=== PATIENT | male | born 1970 | race Caucasian/White ===

== ENCOUNTER → 2019-04-16 | Outpatient (CLI) | payer OTHER ==
[2019-04-16 09:23] LABS: Basophils % (A) 0 %; Eosinophils # (A) 0.2 k/uL (0-0.7); Eosinophils % (A) 1 %; HCT 47.7 % (39.0-53.0); HGB 16.2 gm/dL (13.0-17.5); Lymphocytes # (A) 1.4 k/uL (1.0-4.8); Lymphocytes % (A) 10 %; MCH 30.2 pg (25.0-35.0); MCHC 33.9 g/dL (31.0-37.0); MCV 89.1 fL (80.0-100.0); Mean Platelet Volume 7.6; Monocytes # (A) 0.7 k/uL (0-1.0); Monocytes % (A) 5 %; Neutrophils # (A) 11.8 k/uL (1.3-7.7); Neutrophils % (A) 83 %; Platelet Count 226 k/uL (150-450); RBC 5.36 m/uL (4.30-5.90); RDW 12.4 % (11.5-15.5); WBC 14.3 k/uL (3.8-10.6)
[2019-04-16 17:00] LABS: Vitamin D 25 Hydroxy 16.7 ng/mL (30.0-100.0)
[2019-04-16 17:52] LABS: Albumin 4.8 g/dL (3.80-4.90); Albumin/Globulin Ratio 2.82 (1.60-3.17); Anion Gap 13.4 mmol/L (4.00-12.00); BUN/Creat Ratio 28.89 Ratio (12.00-20.00); Calcium 9.4 mg/dL (8.7-10.3); Carbon Dioxide 21.6 mmol/L (21.6-31.8); Globulin 1.7 g/dL (1.6-3.3); LDL Cholesterol,Calculated 137.2 mg/dL (0.0-131.0); Potassium 4.7 mmol/L (3.5-5.5); Total Bilirubin 1.4 mg/dL (0.2-1.2); Total Protein 6.5 g/dL (6.2-8.2); VLDL Calculation 40.8 mg/dL (5.00-40.00)
== END | disposition home or self-care (01) ==
LOC: LABWHC1 08:02
PROVIDERS: ATTEND Family Medicine
DX: Z00.00 Encounter for general adult medical examination without abnormal findings (principal); E78.1 Pure hyperglyceridemia; E53.8 Deficiency of other specified B group vitamins; E55.9 Vitamin D deficiency, unspecified; N40.0 Benign prostatic hyperplasia without lower urinary tract symptoms; Z13.228 Encounter for screening for other metabolic disorders; E88.81 Metabolic syndrome and other insulin resistance
CPT/HCPCS: 36415; 80053; 80061; 82306; 82607; 83036; 84153; 84443; 85025

== ENCOUNTER 2023-07-27 12:11 | Day surgery (SDC) | payer BC ==
[2023-07-25 09:46] VITALS: BMI 29.8
[~2023-07-27 12:11] MED LIST: CLINDAMYCIN 600 MG in DEXTROSE 5% IN WATER 50 ML IVPB PRN; FAMOTIDINE 20 MG/2 ML VIAL IV PRN; HYDROmorphone 0.5 MG/0.5 ML SYRINGE IVP PRN; LACTATED RINGERS 1,000 ML IV SCH; LIDOCAINE 1% (10MG/ML) FOR IV START INTRADERMA PRN; ONDANSETRON 4 MG/2 ML VIAL IVP PRN
[2023-07-27] MEDS: OXYMETAZOLINE 0.05% NASL SPRAY 1 SPRAY BOTTLE EA NOSTRIL PRN ×5 (12:39→13:00)
[2023-07-27] MEDS ORDERED: LIDOCAINE 1% (10MG/ML) FOR IV START INTRADERMA ONE (12:58)
[2023-07-27 13:05] LABS: Glucose,Whole Blood 92 mg/dL (70-110)
[2023-07-27] MEDS ORDERED: PROPOFOL 10 MG/ML 20 ML VIAL IV ONE (13:07)
[2023-07-27] MEDS ORDERED: MIDAZOLAM 2 MG/2 ML VIAL ONE (13:07)
[2023-07-27] MEDS ORDERED: fentaNYL (PF) 50 MCG/ML 2 ML AMP ONE (13:07)
[2023-07-27] MEDS ORDERED: SUCCINYLCHOLINE CHLORIDE 200 MG/10 ML VIAL IV ONE (13:07)
[2023-07-27] MEDS ORDERED: LIDOCAINE 1% INJ 10MG/ML (20 ML MDV) ONE (13:07)
[2023-07-27] MEDS ORDERED: LIDOCAINE 2%-EPI 1:100,000 20 ML VIAL SUBMUCOSAL ONE ×2 (13:30)
[2023-07-27] MEDS ORDERED: BACITRACIN ZINC 500 UNIT/GM OINT 28.4 GM TUBE TOPICAL ONE ×2 (13:31→14:17)
--- NOTE | 2023-07-27 14:37 | P.OP ---
Date of Procedure: 07/27/23 Preoperative Diagnosis: Deviated nasal septum Inferior turbinate hypertrophy Chronic sinusitis Sinonasal polyposis Postoperative Diagnosis: Same Procedure(s) Performed: Septoplasty Outfractured and submucous resection inferior turbinates Bilateral endoscopic sinus surgery with polypectomy is including bilateral maxillary antrostomy with removal of tissue from exercise is bilateral anterior and posterior ethmoidectomy, bilateral sphenoidotomy tissue from sphenoid sinuses and bilateral frontal sinusotomy with exploration and removal tissue bilaterally Anesthesia: MOEA Surgeon: Gatito Encarnacion Estimated Blood Loss (ml): 10 Pathology: other (Nasal septal bone and cartilage and sinus contents) Condition: stable Disposition: PACU Indications for Procedure: This 53-year-old white female with difficulties with chronic nasal airway obstruction congestion recurrent and chronic sinusitis and sinonasal polyposis as well as hyposmia. Operative Findings: Nasal septum deviated to the right inferior turbinates hypertrophy bilaterally. Moderate size Polyps medial and lateral to the middle turbinates bilaterally as well as within the maxillary and ethmoid sinuses and small polyps in the sphenoid and frontal sinuses Description of Procedure: The patient was brought into the operative suite and placed in a supine position. The patient underwent induction of general anesthesia with oral endotracheal intubation without difficulty. The patient was prepped and draped in the usual aseptic fashion with the orbits in the operating field for monitoring to the case and the computed tomography scan was on the computer screen for review throughout the case. 1% lidocaine with 1 :100,000 epinephrine was infused submucosally into both sides of the nasal septum as well as the lateral nasal wall and anterior tips of the middle turbinates. While this was taking vasoconstrictive effect the inferior turbinates were infractured with [place] elevator and partial submucous resection of the inferior turbinates was performed with a portion of the submucosal soft tissue and the inferior turbinate bone removed with Coblation device. The inferior turbinates were then outfractured with the [place] elevator. A left hemitransfixion incision was then made with the mucoperichondrial and mucoperiosteal flap on the left elevated. The bony cartilaginous junction was disarticulated and the mucoperiosteal flap on the right was elevated. Bony nasal septal deformities were removed with Joelle forceps and an inferior cartilaginous strip was removed leaving a full 1.5 cm caudal strut. Checking intranasally this corrected the nasoseptal deformities and the hemitransfixion incision was closed with a running 4-0 chromic suture. Full 0 endoscopic examination is performed bilaterally. Beginning on the left, the middle turbinate was medialized. Gross polyps were debrided with microdebrider lateral to the middle turbinate as well as minimally medial to the middle turbinate remaining below the level of the superior turbinate The m axillary ostium was located with a ballpoint probe and an infundibulotomy was performed followed by uncinectomy. The maxillary antrostomy was enlarged at the expense of the anterior and posterior fontanelle taking care anteriorly not to injure the lacrimal bone. The maxillary sinus was evaluated with 30 and 70 endoscope .[Abnormal appearing tissue was removed from the maxillary sinus]. Anterior and posterior ethmoidectomy were then performed from anterior to posterior to the level of the skull base. The roof of the anterior ethmoid air cells were then cleaned from posterior to anterior using up-biting Blakesley forceps. Frontal sinusotomy was performed with curved suction and giraffe forceps. The frontal sinus was then explored with 30 endoscope.[Abnormal tissue was removed from the frontal sinus]. Sphenoidotomy was performed with straight suction and straight [place] forceps The sphenoid sinus was then explored with 0 endoscope.[Abnormal tissue was removed from the sphenoid sinus]. Attention was then turned to the right where the procedures were followed as they had been on the left including medialization middle turbinate infundibulotomy uncinectomy gross polypectomies maxillary antrostomy with removal of tissue from the maxillary sinus, anterior posterior ethmoidectomy, sphenoidotomy with removal of tissue from the sphenoid sinus and frontal sinusotomy with removal of tissue from the frontal sinus [Nasopore nasal dressing was placed in the middle meatus bilaterally under direct visualization]. Bilateral Foley airway splints coated with bacitracin ointment were placed and sutured transseptally with a 4-0 nylon suture. The patient was suctioned in oral gastric fashion and was allowed to emerge from general anesthesia having tolerated procedure well and was extubated in the operating suite and transferred to the postoperative recovery area in satisfactory condition.
[2023-07-27 14:52] VITALS: TEMP 97.4
[2023-07-27] MEDS ORDERED: hydrALAZINE HCL 20 MG/ML 1 ML VIAL IVP ONE (16:07)
[2023-07-27 16:49] VITALS: BP 146/70; PULSE 77; RESP 17
== END 2023-07-27 17:03 | disposition home or self-care (01) ==
LOC: OR 12:11
PROVIDERS: ATTEND Otolaryngology
DX: J34.2 Deviated nasal septum (principal); J34.3 Hypertrophy of nasal turbinates; J32.9 Chronic sinusitis, unspecified; Z88.0 Allergy status to penicillin; J45.909 Unspecified asthma, uncomplicated; Z79.899 Other long term (current) drug therapy
CPT/HCPCS: 30520; 30140; 31267; 31257; 31276; 88305; 88300; J2250; J0330; J0360; J2405; J2001; J3010; J3490; J2704; J1170; J0736

== ENCOUNTER → 2024-02-20 | Outpatient (CLI) | payer BC ==
[2024-02-20 21:54] LABS: Alternaria alternata IgE <0.10 kU/L; Aspergillus fumagatus IgE <0.10 kU/L; Birch IgE <0.10 kU/L; Cat Epith & Dander IgE <0.10 kU/L; Cladosporian herbarum IgE <0.10 kU/L; Cockroach IgE <0.10 kU/L; Dermato. farinae IgE <0.10 kU/L; Dog Dander IgE <0.10 kU/L; Elm IgE <0.10 kU/L; Maple (Box Elder) IgE <0.10 kU/L; Oak IgE <0.10 kU/L; Ragweed,Common IgE 0.41 kU/L; Red Top (Bentgrass) IgE <0.10 kU/L
[2024-02-20 21:55] LABS: Aspergillus fumagatus IgE <0.10 kU/L
== END | disposition home or self-care (01) ==
LOC: LABWHC1 09:59
PROVIDERS: ATTEND Internal Medicine Critical Care Medicine
DX: J45.50 Severe persistent asthma, uncomplicated (principal)
CPT/HCPCS: 36415; 82785; 85008; 86003

== ENCOUNTER → 2024-03-05 | Outpatient (CLI) | payer BC ==
--- NOTE | 2024-03-05 09:15 | CT ---
EXAMINATION TYPE: CT chest w con CT DLP: 467.1 mGycm, Automated exposure control for dose reduction was used. DATE OF EXAM: 03/05/2024 7:44 AM COMPARISON: Chest 02/20/2024 CLINICAL INDICATION:Male, 53 years old with history of J45.50 asthma; PHH, asthma TECHNIQUE: Multiple axial images were obtained through the chest. Sagittal and coronal reformats were created for review. Contrast used:100 mL of Isovue 300 with IV Contrast (None if empty) Oral contrast used: (None if empty) FINDINGS: LUNGS/ PLEURA: Scattered pulmonary nodules are seen throughout the lungs. Samples include: somewhat * Right upper lobe groundglass opacity measuring 7 mm series 3 image 14, * right middle lobe 7 mm image 35, * right lower lobe 5 mm image 37 AIRWAY : Patent and unremarkable. HEART: Size within normal limits. MEDIASTINUM: No gross evidence of adenopathy. VASCULATURE: No aortic aneurysm. MUSCULOSKELETAL: No acute osseous abnormalities SOFT TISSUES/LYMPH NODES: Unremarkable. LOWER NECK: No significant findings. UPPER ABDOMEN: No significant findings. IMPRESSION: Scattered pulmonary nodules throughout the lungs. Correlate for history of malignancy. ort-term follow-up recommended in 3 months. Comparisons with others priors institutions may be of fermin efit. No enlarged nodes are identified.
== END | disposition home or self-care (01) ==
LOC: RADCTMAIN 07:14
PROVIDERS: ATTEND Internal Medicine Critical Care Medicine
DX: R91.8 Other nonspecific abnormal finding of lung field (principal); J45.50 Severe persistent asthma, uncomplicated
CPT/HCPCS: 71260; Q9967

== ENCOUNTER 2024-03-21 17:51 | Observation (INO) | payer BC ==
--- NOTE | 2024-03-21 19:07 | ED ---
Chest Pain HPI - General Chief Complaint: Chest Pain Stated Complaint: chest pain Time Seen by Provider: 03/21/24 17:58 Source: patient Mode of arrival: ambulatory Limitations: no limitations - History of Present Illness Initial Comments: This patient is a 53-year-old man who complains of having bilateral chest pain that has been going on for approximately 1 week, perhaps little more. He describes it as a aching or burning. He has also had some cough. Patient has underlying history of asthma and did receive Dupixent shot approximately 2 weeks ago. He states he has felt like he may have had fevers. No anginal type symptoms, no diaphoresis, dyspnea, nausea or vomiting. MD Complaint: chest pain Onset/Timin -: week(s) Onset: during rest Pain Location: left chest, right chest Pain Radiation: none Severity: moderate Quality: other Consistency: constant Improves With: nothing Worsens With: other Other Symptoms: cough Treatments Prior to Arrival: none - Related Data Home Medications Medication Instructions Recorded Confirmed Montelukast [Singulair] 10 mg PO HS 07/25/23 03/21/24 Albuterol Inhaler [Ventolin Hfa 2 puff INHALATION RT-Q6H PRN 03/21/24 03/21/24 Inhaler] Albuterol Nebulized [Ventolin 2.5 mg INHALATION RT-TID PRN 03/21/24 03/21/24 Nebulized] Ascorbic Acid [Vitamin C] 1,000 mg PO DAILY 03/21/24 03/21/24 Cholecalciferol [Vitamin D3 (25 50 mcg PO DAILY 03/21/24 03/21/24 Mcg = 1000 Iu)] Dupilumab [Dupixent Syringe] 300 mg SQ DIRECTED 03/21/24 03/21/24 Dupilumab [Dupixent Syringe] 600 mg SQ ONCE 03/21/24 03/21/24 Fluticasone/Umeclidin/Vilanter 1 puff INHALATION RT-DAILY 03/21/24 03/21/24 [Trelegy Ellipta 200-62.5-25] Rosuvastatin Calcium [Crestor] 5 mg PO DAILY 03/21/24 03/21/24 Allergies Allergy/AdvReac Type Severity Reaction Status Date / Time Penicillins Allergy Rash/Hives Verified 03/21/24 19:20 Review of Systems ROS Statement: Those systems with pertinent positive or pertinent negative responses have been documented in the HPI. ROS Other: All systems not noted in ROS Statement are negative. Constitutional: Reports: fever. Denies: weakness Respiratory: Reports: cough, wheezes. Denies: dyspnea Cardiovascular: Reports: as per HPI, chest pain. Denies: palpitations, orthopnea, edema, syncope Gastrointestinal: Denies: abdominal pain, nausea, vomiting, diarrhea Genitourinary: Denies: dysuria, hematuria Musculoskeletal: Denies: back pain Skin: Denies: rash Neurological: Denies: headache, weakness EKG Findings - EKG Results: EKG: interpreted by KAREN, sinus rhythm, normal QRS, normal ST/T EKG shows: tachycardia (107) - Blocks, [place], Hypertrophy, ST Abn: QRS axis and voltage: left axis deviation (-30 to -90) (Borderline) Past Medical History Past Medical History: Asthma Additional Past Medical History / Comment(s): sinus and allergy issues History of Any Multi-Drug Resistant Organisms: None Reported Past Surgical History: No Surgical Hx Reported Additional Past Anesthesia/Blood Transfusion Reaction / Comment(s): pt has never had anesth. Past Psychological History: No Psychological Hx Reported Smoking Status: Never smoker Past Alcohol Use History: Rare Past Drug Use History: None Reported - Past Family History Mother Family Medical History: No Reported History General Exam Limitations: no limitations General appearance: alert, in no apparent distress Head exam: Present: atraumatic, normocephalic Eye exam: Present: normal appearance. Absent: scleral icterus, conjunctival injection ENT exam: Present: normal oropharynx Neck exam: Present: normal inspection Respiratory exam: Present: wheezes. Absent: respiratory distress, rales, rhonchi, stridor, chest wall tenderness, accessory muscle use, decreased breath sounds, prolonged expiratory Cardiovascular Exam: Present: regular rate, normal rhythm, normal heart sounds. Absent: systolic murmur, diastolic murmur, rubs, gallop GI/Abdominal exam: Present: soft. Absent: distended, tenderness, guarding, rebound, rigid, mass Extremities exam: Present: normal inspection, normal capillary refill. Absent: pedal edema, calf tenderness Back exam: Present: normal inspection. Absent: CVA tenderness (R), CVA tenderness (L) Neurological exam: Present: alert Skin exam: Present: warm, dry, intact, normal color. Absent: rash Course Vital Signs 03/21/24 03/21/24 03/21/24 17:53 18:03 18:19 Temperature 100.8 F H 101.1 F H Pulse Rate 116 H 110 H Respiratory 20 20 22 Rate Blood Pressure 114/68 122/72 O2 Sat by Pulse 97 96 Oximetry 03/21/24 03/21/24 03/21/24 19:23 20:00 21:00 Temperature 98.1 F Pulse Rate 108 H 105 H 108 H Respiratory 18 20 22 Rate Blood Pressure 123/70 116/74 107/59 O2 Sat by Pulse 96 95 95 Oximetry 03/21/24 22:42 Temperature Pulse Rate 100 Respiratory 18 Rate Blood Pressure 98/57 O2 Sat by Pulse 96 Oximetry Disposition Clinical Impression: Chest pain Disposition: ADMITTED IP TO THIS HOSP Condition: Fair Instructions (If sedation given, give patient instructions): Chest Pain (ED) Is patient prescribed a controlled substance at d/c from ED?: No Referrals: Clary Vela MD [Primary Care Provider] - 1-2 days
[2024-03-21 19:09] LABS: Basophils % (A) 0 %; Eosinophils # (A) 2.9 k/uL (0-0.7); Eosinophils % (A) 23 %; HCT 39.4 % (39.0-53.0); HGB 12.7 gm/dL (13.0-17.5); Lymphocytes # (A) 1.5 k/uL (1.0-4.8); Lymphocytes % (A) 12 %; MCH 30.5 pg (25.0-35.0); MCHC 32.3 g/dL (31.0-37.0); MCV 94.3 fL (80.0-100.0); Mean Platelet Volume 8.9; Monocytes # (A) 0.9 k/uL (0-1.0); Monocytes % (A) 7 %; Neutrophils # (A) 7.2 k/uL (1.3-7.7); Neutrophils % (A) 57 %; Platelet Count 222 k/uL (150-450); RBC 4.18 m/uL (4.30-5.90); RDW 12.6 % (11.5-15.5); WBC 12.6 k/uL (3.8-10.6)
[2024-03-21] MEDS: IBUPROFEN 400 MG TAB PO STA (19:21)
[2024-03-21] MEDS: ACETAMINOPHEN TAB 325 MG TAB PO STA (19:22)
[2024-03-21 19:24] LABS: ALT 23 U/L (4-49); AST 30 U/L (17-59); African American GFR (CKD) >90 (>60 ml/min/1.73 sqM); Alkaline Phosphatase 68 U/L (38-126); Anion Gap 6 mmol/L; Blood Urea Nitrogen 25 mg/dL (9-20); Carbon Dioxide 28 mmol/L (22-30); Chloride 101 mmol/L (98-107); Glucose 99 mg/dL (74-99); Magnesium 1.8 mg/dL (1.6-2.3); Non-African American GFR(CKD) >90 (>60 ml/min/1.73 sqM); Potassium 4.4 mmol/L (3.5-5.1); Sodium 135 mmol/L (137-145); Total Bilirubin 1.2 mg/dL (0.2-1.3); Total Protein 6.9 g/dL (6.3-8.2)
--- NOTE | 2024-03-21 19:28 | XR ---
EXAMINATION TYPE: XR chest 2V DATE OF EXAM: 03/21/2024 COMPARISON: 02/20/2024 HISTORY: 53 year-old male shortness of breath TECHNIQUE: PA and lateral views FINDINGS: Heart upper limits of normal in size. Medium diffuse interstitial opacities without peter consolidati on or pleural effusion. IMPRESSION: Diffuse abnormal interstitial opacities. Consider etiologies such as mild interstitial pulmonary jenifer a, atypical pneumonias, and interstitial pneumonitis.
[2024-03-21 19:44] LABS: INR 0.9 (<1.2); Partial Thromboplastin Time 27.4 sec (22.0-30.0); Prothrombin Time 10.1 sec (10.0-12.5)
[2024-03-21] MEDS: SODIUM CHLORIDE 0.9% 1,700 ML IV ONE (21:06)
[2024-03-21] MEDS: SODIUM CHLORIDE 0.9% 1,000 ML IV STA (21:07)
[2024-03-21] MEDS: AZITHROMYCIN 500 MG TAB PO STA (22:39)
[2024-03-21] MEDS: ASPIRIN 81 MG PO STA (22:41)
[2024-03-21] MEDS ORDERED: NITROGLYCERIN SL TABS 0.4 MG TAB SUBLINGUAL PRN (22:57)
[2024-03-21] MEDS ORDERED: ALBUTEROL NEBULIZED 2.5 MG/3 ML INHALATION PRN (23:06)
[2024-03-21] MEDS: ENOXAPARIN 100 MG/ML SYRINGE SQ ONE (23:31)
[2024-03-22] MEDS: SYMBICORT 80-4.5 MCG INHALER INHALATION SCH (08:21)
[2024-03-22] MEDS: IPRATROPIUM 0.5 MG/2.5 ML NEBU INHALATION SCH (08:21)
[2024-03-22] MEDS: ASCORBIC ACID 500 MG TAB PO SCH (08:47)
[2024-03-22] MEDS: ATORVASTATIN 10 MG TAB PO SCH (08:47)
[2024-03-22] MEDS: ASPIRIN 325 MG TAB PO SCH (08:47)
[2024-03-22] MEDS: AZITHROMYCIN 500 MG TAB PO SCH (08:47)
[2024-03-22] MEDS: CHOLECALCIFEROL 25 MCG (1000 IU) TABLET PO SCH (08:47)
[2024-03-22] MEDS: METOPROLOL SUCCINATE (ER) 25 MG TAB.ER.24H PO SCH (09:43)
[2024-03-22] MEDS: HEPARIN SODIUM 1,000 UN/ML (10ML VL) IV ONE (09:44)
[2024-03-22] MEDS: HEPARIN SOD,PORK IN 0.45% NACL 25,000 UNIT in 0.45% NACL 1 250ML.BAG IV SCH (09:44)
[2024-03-22 10:07] LABS: Chol/HDL Ratio 3.12 Ratio; LDL Cholesterol,Calculated 60.9 mg/dL (0.0-131.0); VLDL Calculation 19.96 mg/dL (5.00-40.00)
[2024-03-22] MEDS ORDERED: ALBUTEROL NEBULIZED 2.5 MG/3 ML INHALATION PRN (12:57)
--- NOTE | 2024-03-22 13:47 | P.CRDCN ---
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 Amador, remote history of tobacco use. We have been asked to evaluate the patient for chest pain. Patient states that he developed shortness of breath and then developed chest pain at the same time which is not usual for him. He also has fever, cough. He denies sputum production. He denies shortness of breath at this time. He denies smoking, tobacco use or marijuana use. His father had history of atrial fibrillation but no significant coronary artery disease. Blood pressure 116/73, heart rate 114, pulse ox 95% on room air. Patient has been started on IV antibiotics, status post 1.7 L IV fluid bolus EKG: Sinus tachycardia 107 bpm, sinus tachycardia 93 bpm Chest x-ray: Diffuse abnormal interstitial opacities. Etiologies include mild interstitial pulmonary edema, atypical pneumonias, interstitial pneumonitis. Laboratory studies: WBC 12.6, hemoglobin 12.7. Sodium 135, potassium 4.4, BUN 25 and creatinine 0.75. Troponin 0.142, 0.177, 0.181, 0.161. Influenza A, influenza B, RSV, COVID-19 not detected. Home cardiac medications: Crestor 5 mg daily Review Of Systems: At the time of my exam: CONSTITUTIONAL: Reports fever or chills. HEENT: Denies blurred vision, vision changes, or eye pain. Denies hemoptysis CARDIOVASCULAR: Denies chest pain. Denies orthopnea. Denies PND. Denies palpitations RESPIRATORY: Denies shortness of breath. Reports cough without sputum production GASTROINTESTINAL: Denies abdominal pain. Denies nausea or vomiting. HEMATOLOGIC: Denies bleeding disorders. GENITOURINARY: Denies any blood in urine. SKIN: Denies puritis. Denies rash. Physical examination: Gen: This is a 53-year-old male in no acute distress VS: reviewed HEENT: Head is atraumatic, normocephalic. Pupils equal, round. Sclerae is anicteric. NECK: Supple. No JVD. LUNGS: Few scattered rhonchi. No intercostal retractions. HEART: Regular rate and rhythm. No murmur. ABDOMEN: Soft No tenderness. EXTREMITIES: No pedal edema. No calf tenderness. NEUROLOGICAL: Patient is awake, alert and oriented x3. Assessment: Possible Non-ST elevated MO versus type II MO, patient has elevated but flat troponins Eosinophilic asthma Hyperlipidemia Asthma Remote history of tobacco use Plan: Resume patient's home cardiac medications following changes: Increase atorvastatin to 40 mg daily Reduce aspirin to 81 mg daily Start patient on Toprol XL 25 mg daily Start patient on heparin drip Obtain 2-D echocardiogram and Doppler study to assess cardiac structure and function Continue antibiotics Further recommendations to follow based upon clinical course Thank you kindly for this consultation. Nurse practitioner note has been reviewed, I agree with documented findings and plan of care. Patient was seen and examined. Past Medical History Past Medical History: Asthma, Hyperlipidemia Additional Past Medical History / Comment(s): sinus and allergy issues History of Any Multi-Drug Resistant Organisms: None Reported Past Surgical History: No Surgical Hx Reported Additional Past Surgical History / Comment(s): Jul 2023 sinus sx Past Anesthesia/Blood Transfusion Reactions: No Reported Reaction Additional Past Anesthesia/Blood Transfusion Reaction / Comment(s): No prior blood transfusion. Past Psychological History: No Psychological Hx Reported Smoking Status: Former smoker Past Alcohol Use History: None Reported, Rare Past Drug Use History: None Reported - Past Family History Mother Family Medical History: Diabetes Mellitus Father Family Medical History: AFIB, Diabetes Mellitus Medications and Allergies Home Medications Medication Instructions Recorded Confirmed Type Montelukast [Singulair] 10 mg PO HS 07/25/23 03/21/24 History Albuterol Inhaler [Ventolin Hfa 2 puff INHALATION RT-Q6H PRN 03/21/24 03/21/24 History Inhaler] Albuterol Nebulized [Ventolin 2.5 mg INHALATION RT-TID PRN 03/21/24 03/21/24 History Nebulized] Ascorbic Acid [Vitamin C] 1,000 mg PO DAILY 03/21/24 03/21/24 History Cholecalciferol [Vitamin D3 (25 50 mcg PO DAILY 03/21/24 03/21/24 History Mcg = 1000 Iu)] Dupilumab [Dupixent Syringe] 300 mg SQ DIRECTED 03/21/24 03/21/24 History Dupilumab [Dupixent Syringe] 600 mg SQ ONCE 03/21/24 03/21/24 History Fluticasone/Umeclidin/Vilanter 1 puff INHALATION RT-DAILY 03/21/24 03/21/24 History [Trelegy Ellipta 200-62.5-25] Rosuvastatin Calcium [Crestor] 5 mg PO DAILY 03/21/24 03/21/24 History Allergies Allergy/AdvReac Type Severity Reaction Status Date / Time Penicillins Allergy Rash/Hives Verified 03/21/24 19:20 Physical Exam Vitals: Vital Signs Temp Pulse Pulse Resp BP BP Pulse Ox 03/22/24 03:40 98.7 F 114 H 18 116/73 95 03/22/24 00:18 98.1 F 100 20 121/77 96 03/22/24 00:00 89 18 107/65 96 03/21/24 22:42 100 18 98/57 96 03/21/24 21:00 98.1 F 108 H 22 107/59 95 03/21/24 20:00 105 H 20 116/74 95 03/21/24 19:23 108 H 18 123/70 96 03/21/24 18:19 101.1 F H 110 H 22 122/72 96 03/21/24 18:03 20 03/21/24 17:53 100.8 F H 116 H 20 114/68 97 Intake and Output 03/21/24 03/22/24 03/22/24 22:59 06:59 14:59 Other: Voiding Method Toilet # Voids 1 Weight 99.79 kg 100.9 kg Results 03/21/24 18:53 03/21/24 18:53 Cardiac Enzymes 03/21/24 03/21/24 03/21/24 Range/Units 18:53 18:53 21:08 AST 30 (17-59) U/L Troponin I 0.142 H* 0.177 H* (0.000-0.034) ng/mL 03/22/24 03/22/24 Range/Units 00:01 03:54 AST (17-59) U/L Troponin I 0.181 H* 0.161 H* (0.000-0.034) ng/mL Coagulation 03/21/24 Range/Units 18:53 PT 10.1 (10.0-12.5) sec APTT 27.4 (22.0-30.0) sec CBC 03/21/24 Range/Units 18:53 WBC 12.6 H (3.8-10.6) k/uL RBC 4.18 L (4.30-5.90) m/uL Hgb 12.7 L (13.0-17.5) gm/dL Hct 39.4 (39.0-53.0) % Plt Count 222 (150-450) k/uL Comprehensive Metabolic Panel 03/21/24 Range/Units 18:53 Sodium 135 L (137-145) mmol/L Potassium 4.4 (3.5-5.1) mmol/L Chloride 101 (98-107) mmol/L Carbon Dioxide 28 (22-30) mmol/L BUN 25 H (9-20) mg/dL Creatinine 0.75 (0.66-1.25) mg/dL Glucose 99 (74-99) mg/dL Calcium 9.0 (8.4-10.2) mg/dL AST 30 (17-59) U/L ALT 23 (4-49) U/L Alkaline Phosphatase 68 (38-126) U/L Total Protein 6.9 (6.3-8.2) g/dL Albumin 4.0 (3.5-5.0) g/dL Current Medications Generic Name Dose Route Start Last Admin Trade Name Freq PRN Reason Stop Dose Admin Albuterol Sulfate 2.5 mg 03/21/24 23:06 Albuterol Nebulized 2.5 Mg/3 Ml INHALATION RT-TID PRN Shortness Of Breath Ascorbic Acid 1,000 mg 03/22/24 09:00 Ascorbic Acid 500 Mg Tab PO DAILY [facility] Aspirin 325 mg 03/22/24 09:00 Aspirin 325 Mg Tab PO DAILY [facility] Atorvastatin Calcium 10 mg 03/22/24 09:00 Atorvastatin 10 Mg Tab PO DAILY [facility] Azithromycin 500 mg 03/22/24 09:00 Azithromycin 500 Mg Tab PO 03/25/24 09:01 DAILY [facility] Protocol Budesonide/Formoterol Fumarate 2 puff 03/22/24 08:00 Symbicort 80-4.5 Mcg Inhaler INHALATION RT-BID [facility] Cholecalciferol 50 mcg 03/22/24 09:00 Cholecalciferol 25 Mcg (1000 Iu) Tablet PO DAILY [facility] Ceftriaxone Sodium 2 gm/ 50 mls @ 100 mls/hr 03/22/24 21:00 Sodium Chloride IVPB DAILY@2100 [facility] Protocol Ipratropium [place] 0.5 mg 03/22/24 08:00 Ipratropium 0.5 Mg/2.5 Ml Nebu INHALATION RT-QID RIKY Montelukast Sodium 10 mg 03/22/24 21:00 Montelukast 10 Mg Tab PO HS RIKY Nitroglycerin 0.4 mg 03/21/24 22:57 Nitroglycerin Sl Tabs 0.4 Mg Tab SUBLINGUAL Q5M PRN Chest Pain Intake and Output 03/21/24 03/22/24 03/22/24 22:59 06:59 14:59 Other: Voiding Method Toilet # Voids 1 Weight 99.79 kg 100.9 kg 03/21/24 18:53 03/21/24 18:53
[2024-03-22 14:02] LABS: Appearance,Urine Clear (Clear); Bilirubin,Urine Negative (Negative); Blood,Urine Negative (Negative); Color,Urine Yellow; Glucose,Urine (UA) Negative (Negative); Ketones,Urine 1+ (Negative); Leukocyte Esterase,Urine Negative (Negative); Nitrite,Urine Negative (Negative); Protein,Urine Trace (Negative); Specific Gravity,Urine 1.028 (1.001-1.035); Urobilinogen,Urine <2.0 mg/dL (<2.0)
--- NOTE | 2024-03-22 15:00 | CT ---
EXAMINATION TYPE: CT angio chest CT DLP: 464 mGycm, Automated exposure control for dose reduction was used. DATE OF EXAM: 03/22/2024 2:44 PM COMPARISON: 03/05/2024 CLINICAL INDICATION:Male, 53 years old with history of positive ddimer; Elevated D-dimer. TECHNIQUE/CONTRAST: CTA scan of the thorax is performed with IV Contrast, patient injected with 100 mL of Isovue 370, MIP images are created and reviewed these are created on a separate workstation.. FINDINGS: Pulmonary Artery: There is no evidence for a filling defect within the pulmonary vasculature to sugge st acute pulmonary embolism. The pulmonary artery is of normal size. Lungs/Pleura: There are multiple pulmonary nodules throughout the lungs, with the majority of abdomen irregular borders. No evidence of focal consolidation, pleural effusion or pneumothorax. Airway: Large airways are patent. Heart: Heart is within normal limits for size. Vasculature: No evidence of aortic aneurysm. Mediastinum: No gross evidence of adenopathy. Musculoskeletal: No acute osseous abnormalities Soft Tissues/lymph nodes: Unremarkable. Lower neck: No significant findings. Upper Abdomen: No significant findings. IMPRESSION: 1. No evidence of pulmonary embolism. 2. Scattered pulmonary nodules throughout the lungs which are more dense compared to prior. Correlate for infectious/inflammatory processes. Alternatively findings could represent metastatic disease yane ropriate clinical setting. Short-term follow-up in 3 months recommended to ensure resolution.
[2024-03-22] MEDS: ACETAMINOPHEN TAB 325 MG TAB PO PRN (16:54)
[2024-03-22] MEDS: methylPREDNISolone SOD SUCCI 125 MG/2 ML VIAL IV SCH (17:31)
[2024-03-22] MEDS: MONTELUKAST 10 MG TAB PO SCH (20:27)
--- NOTE | 2024-03-22 21:07 | HP ---
HISTORY AND PHYSICAL CHIEF COMPLAINT: Chest pain. HISTORY OF PRESENT ILLNESS: This is a 53-year-old gentleman with a past medical history of pansinusitis, history of eosinophilic asthma, was complaining of chest pain anterior part of the chest. EKG did not show acute changes, but troponin was found to be elevated up to 0.8 to 1. There is no history of any fever, rigors, or chills at this time. The patient is taking Dupixent for eosinophilic asthma. PAST MEDICAL HISTORY: Reviewed include eosinophilic asthma, history of pansinusitis surgery, hyperlipidemia, rest of the history and chart is also reviewed. HOME MEDICATION: Reviewed include Singulair, dose and rest of medications noted. ALLERGIES: Penicillin. FAMILY HISTORY: History of diabetes in the family. SOCIAL HISTORY: Previous history of smoking. The patient works REVIEW OF SYSTEMS: 14-point review of systems is negative except as mentioned earlier. PHYSICAL EXAMINATION: VITAL SIGNS: Pulse is 109, blood pressure 114/69, respirations 18, and temperature degrees. HEENT: Conjunctivae normal. NECK: No jugular venous distention. CARDIOVASCULAR: S1 and S2. RESPIRATIONS: Few rhonchi. No crackles. ABDOMEN: Soft. . SKIN: No ulcers. LABORATORY DATA: Reviewed include WBC 12.6, hemoglobin 12.7. COVID-19 negative. ASSESSMENT: 1. Chest pain, possible acute [id number] elevation myocardial infarction with troponin 0.181. 2. Eosinophilic asthma. 3. Significant . 4. Fever, for evaluation. 5. History of pansinusitis. 6. Hyperlipidemia. RECOMMENDATIONS AND DISCUSSION: This 53-year-old gentleman presented with multiple complex medical issues. We will monitor the patient closely. The patient was initiated on broad-spectrum IV antibiotics. We will continue to monitor. Recommend pulmonary consultation. The chest x-ray was reported as showing abnormal interstitial opacities. I recommend CT scan of the chest without contrast. Consult Pulmonary, Cardiology, Hematology/Oncology. Obtain the cultures. If fever is persisting, I would also recommend Infectious Disease evaluation also. Prognosis guarded. Further recommendations to follow. See orders for details. MMODL / IJN: [id number] /
--- NOTE | 2024-03-22 23:36 | P.CNPUL ---
History of Present Illness Consult date: 03/22/24 Reason for consult: dyspnea, chest pain History of present illness: This is a 53-year-old male patient who was hospitalized for chest pain across his chest radiating to his back worse with breathing. The pain is rather constant with the severity of the pain fluctuating especially with breathing. He was having some sweating and diaphoresis overnight. No radiation to his arms. No nausea. The patient however was getting diaphoretic. Based on that, he was brought into the emergency department for further evaluation. I met this patient approximately a month ago in my office. He came to see me for shortness of breath and diminished level of activity as the patient was getting short of breath upon walking 25 to 50 feet. He had symptoms of constant cough and congestion chest tightness and wheezing. At that time, the patient was found to be severely bronchospastic and he had obstructive airway limitation with an FEV1 of 35% predicted with an FEV1 over FVC ratio of 60 with normal total lung capacity. Chest x-ray showed some minimal nonspecific interstitial changes in the lung bases more so on the left. Based on that, I started the patient on a maintenance of prednisone and I started him on Trelegy Ellipta 1 puff a day and Singulair 10 mg p.o. daily. His serum IgE level came back at 167. Aspergillus IgE levels came back negative and the serum eosinophil count was 2970. He is respiratory allergy panel was essentially negative. The patient was started on Dupixent injections and he received his first loading dose. In follow-up, I saw the patient in the office and he was having significant improvement where his FEV1 was up to 75% of predicted. I reviewed the CAT scan of the chest and it showed some nonspecific right upper lobe groundglass opacity measuring 7 mm in size in the right middle lobe opacity measuring 7 mm in size in the right lower lobe measuring 5 mm in size. No honeycombing. No bronchiectasis. He was on a prednisone burst taper which was ultimately weaned off and discontinued. Around 4 to 5 days ago, he developed the above-mentioned symptoms that he came into the emergency department for further investigation. No workup thus far shows a white cell count of 12.6 with a hemoglobin 12.7 and a platelet count of 222. Coagulation profile is within normal limits. D-dimer is at 1.97. BUN is 25 with a creatinine of 0.7 and sodium is at 135. Troponins were elevated and the levels were 0.140.17 0.18-0.16 respectively x 4. His CRP level was 16.2. His UA was positive for ketones. Negative for blood. The viral screen was negative. Based on the EKG, there is some nonspecific ST segment changes yet the cardiac rhythm was felt to be essentially to be in sinus. The patient had a repeat chest x-ray that showed some increased interstitial opacities bilaterally. Based on that, the patient was given a CT angiogram and this showed no evidence of any pulmonary embolism. There are some scattered pulmonary nodules throughout the lungs there are more than as compared to the previous study. Infectious/inflammatory causes were obviously entertained. I compared the current CAT scan with the earlier CAT scans of the chest and center of this pulmonary result of the new onset. Cardiology has been consulted. Echocardiogram is in progress. The patient was started on a combination of Rocephin and Zithromax. Pulmonary consultation was requested accordingly. The patient's oxygenation is 95% on room air. Review of Systems Patient reports sinus problems but reports no frequent nosebleeds and no nose problems. He reports shortness of breath when walking but reports ] chest pain, no arm pain on exertion, no shortness of breath when lying down, no pal pitations, and no known heart murmur. He reports cough, wheezing, and shortness of breath but reports no coughing up blood and no sleep apnea. He reports runny nose and sinus pressure but reports no itching, no hives, and no frequent sneezing. He reports no fever, no night sweats, no significant weight gain, no significant weight loss, and no exercise intolerance. He reports no dry eyes, no vision change, and no irritation. He reports no difficulty hearing and no ear pain. He reports no sore throat, no bleeding gums, no snoring, no dry mouth, no mouth ulcers, no oral abnormalities, and no teeth problems. He reports no abdominal pain, no nausea, no vomiting, no constipation, normal appetite, no diarrhea, not vomiting blood, no dyspepsia, and no GERD. He reports no incontinence, no difficulty urinating, no hematuria, and no increased frequency. He reports no muscle aches, no muscle weakness, no arthralgias/joint pain, no back pain, and no swelling in the extremities. He reports no abnormal mole, no jaundice, no rashes, and no laceration. He reports no loss of consciousness, no weakness, no numbness, no seizures, no dizziness, no migraines, no headaches, and no tremor. He reports no depression, no sleep disturbances, feeling safe in a relationship, no alcohol abuse, no anxiety, no hallucinations, and no suicidal thoughts. He reports no fatigue. He reports no swollen glands, no bruising, and no excessive bleeding. Past Medical History Past Medical History: Asthma, Hyperlipidemia Additional Past Medical History / Comment(s): sinus and allergy issues History of Any Multi-Drug Resistant Organisms: None Reported Past Surgical History: No Surgical Hx Reported Additional Past Surgical History / Comment(s): Jul 2023 sinus sx Past Anesthesia/Blood Transfusion Reactions: No Reported Reaction Additional Past Anesthesia/Blood Transfusion Reaction / Comment(s): No prior blood transfusion. Past Psychological History: No Psychological Hx Reported Smoking Status: Former smoker Past Alcohol Use History: None Reported, Rare Past Drug Use History: None Reported - Past Family History Mother Family Medical History: Diabetes Mellitus Father Family Medical History: AFIB, Diabetes Mellitus Medications and Allergies Home Medications Medication Instructions Recorded Confirmed Type Montelukast [Singulair] 10 mg PO HS 07/25/23 03/21/24 History Albuterol Inhaler [Ventolin Hfa 2 puff INHALATION RT-Q6H PRN 03/21/24 03/21/24 History Inhaler] Albuterol Nebulized [Ventolin 2.5 mg INHALATION RT-TID PRN 03/21/24 03/21/24 History Nebulized] Ascorbic Acid [Vitamin C] 1,000 mg PO DAILY 03/21/24 03/21/24 History Cholecalciferol [Vitamin D3 (25 50 mcg PO DAILY 03/21/24 03/21/24 History Mcg = 1000 Iu)] Dupilumab [Dupixent Syringe] 300 mg SQ DIRECTED 03/21/24 03/21/24 History Dupilumab [Dupixent Syringe] 600 mg SQ ONCE 03/21/24 03/21/24 History Fluticasone/Umeclidin/Vilanter 1 puff INHALATION RT-DAILY 03/21/24 03/21/24 History [Trelegy Ellipta 200-62.5-25] Rosuvastatin Calcium [Crestor] 5 mg PO DAILY 03/21/24 03/21/24 History Allergies Allergy/AdvReac Type Severity Reaction Status Date / Time Penicillins Allergy Rash/Hives Verified 03/21/24 19:20 Physical Exam Vitals: Vital Signs Temp Pulse Pulse Resp BP BP Pulse Ox 03/22/24 16:50 101.3 F H 108 H 18 117/69 95 03/22/24 13:42 107 H 18 03/22/24 11:55 99.8 F H 107 H 18 104/65 94 L 03/22/24 10:16 109 H 18 03/22/24 08:45 100.0 F H 109 H 18 114/69 90 L 03/22/24 08:30 111 H 03/22/24 08:25 111 H 14 92 L 03/22/24 03:40 98.7 F 114 H 18 116/73 95 03/22/24 00:18 98.1 F 100 20 121/77 96 03/22/24 00:00 89 18 107/65 96 03/21/24 22:42 100 18 98/57 96 03/21/24 21:00 98.1 F 108 H 22 107/59 95 03/21/24 20:00 105 H 20 116/74 95 03/21/24 19:23 108 H 18 123/70 96 03/21/24 18:19 101.1 F H 110 H 22 122/72 96 03/21/24 18:03 20 03/21/24 17:53 100.8 F H 116 H 20 114/68 97 Intake and Output 03/22/24 03/22/24 03/22/24 06:59 14:59 22:59 Intake Total 1080 63.167 Output Total 120 Balance 960 63.167 Intake: Intake, IV Titration 63.167 Amount Heparin Sod,Pork in 0.45% 63.167 NaCl 25,000 unit In 0.45 % NaCl 1 250ml.bag @ 9. 9108 UNITS/KG/HR 10 mls/ hr IV .Q24H [facility] Rx#: [id number] Oral 1080 Output: Urine 120 Other: Voiding Method Toilet Toilet # Voids 1 Weight 100.9 kg Patient is currently on room air oxygen,, comfortable. Head exam was generally normal. There was no scleral icterus or corneal arcus. Mucous membranes were moist. Neck was supple and without jugular venous distension, thyromegaly, or carotid bruits. Carotids were easily palpable bilaterally. There was no adenopathy. Lung sounds are diminished along with some few scattered expiratory wheeze Cardiac exam revealed the PMI to be normally situated and sized. The rhythm was regular and no extrasystoles were noted during several minutes of auscultation. The first and second heart sounds were normal and physiologic splitting of the second heart sound was noted. There were no murmurs, rubs, clicks, or gallops. Abdominal exam revealed normal bowel sounds. The abdomen was soft, non-tender, and without masses, organomegaly, or appreciable enlargement of the abdominal aorta. Examination of the extremities revealed easily palpable radial, femoral and pedal pulses. There was no cyanosis, clubbing or edema. Examination of the skin revealed no evidence of significant rashes, suspicious appearing nevi or other concerning lesions. Neurologically, the patient is awake and alert and the patient does not have any focal neurological deficit. Cranial nerves are essentially intact. Results - Laboratory Findings CBC and BMP: 03/21/24 18:53 03/21/24 18:53 PT/INR, D-dimer PT 10.1 sec (10.0-12.5) 03/21/24 18:53 INR 0.9 (<1.2) 03/21/24 18:53 D-Dimer 1.97 mg/L FEU (<0.60) H 03/22/24 13:30 Abnormal lab findings: Abnormal Labs 03/21/24 03/21/24 03/21/24 18:53 18:53 18:53 WBC 12.6 H RBC 4.18 L Hgb 12.7 L Eosinophils # 2.9 H APTT D-Dimer Sodium 135 L BUN 25 H Troponin I 0.142 H* C-Reactive Protein HDL Cholesterol Urine Protein Urine Ketones 03/21/24 03/22/24 03/22/24 21:08 00:01 03:54 WBC RBC Hgb Eosinophils # APTT D-Dimer Sodium BUN Troponin I 0.177 H* 0.181 H* 0.161 H* C-Reactive Protein HDL Cholesterol Urine Protein Urine Ketones 03/22/24 03/22/24 03/22/24 03:54 10:36 12:58 WBC RBC Hgb Eosinophils # APTT 43.2 H D-Dimer 1.89 H Sodium BUN Troponin I C-Reactive Protein HDL Cholesterol 38.10 L Urine Protein Urine Ketones 03/22/24 03/22/24 03/22/24 13:18 13:30 13:56 WBC RBC Hgb Eosinophils # APTT D-Dimer 1.97 H Sodium BUN Troponin I C-Reactive Protein 16.2 H HDL Cholesterol Urine Protein Trace H Urine Ketones 1+ H - Diagnostic Findings Chest x-ray: image reviewed CT scan - chest: image reviewed Assessment and Plan Plan: Acute chest pain, diffuse, pleuritic, not typical of any anginal pain yet coronary artery disease obviously a concern as the patient has abnormal troponins and this needs to be further worked up. Nonspecific EKG changes. Patient is currently on IV heparin. CT of the chest is negative for any pulm embolism. 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 Serum IgE level was 167. Respiratory allergy panel was negative. Obviously the patient has abnormal nodular pulm infiltrates bilaterally, nonspecific. There is some interval pr ogression compared to the earlier CAT scan of the chest that was done on this patient few weeks back. He does have chronic sinus disease. Possibility of Churg Raúl syndrome, eosinophilic granulomatosis with polyangiitis cannot be completely ruled out. History of sinus polyposis Allergic rhinitis Chronic back pain Plan Consult with cardiology and the patient was maintained on IV heparin Echocardiogram is in progress CT of the chest was noted and there is no evidence of any pulmonary embolism The pulmonary nodular changes and groundglass changes are most likely noninfectious in nature. Procalcitonin level is negative and the viral screen is also negative. 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 Will check a ANCA level. Will start the patient IV Solu-Medrol. Continue Symbicort for now and the patient should be able to use the Trelegy Ellipta from home if the medication is available in combination with Singulair 10 mg p.o. daily. May consider bronchoscopy at the later stages no definite diagnosis has been established. Will continue to follow
[2024-03-23 06:34] LABS: Glucose,Whole Blood 185 mg/dL (70-110)
[2024-03-23 06:46] LABS: Basophils % (A) 0 %; Eosinophils # (A) 0.2 k/uL (0-0.7); Eosinophils % (A) 2 %; HGB 12.6 gm/dL (13.0-17.5); Lymphocytes # (A) 0.8 k/uL (1.0-4.8); Lymphocytes % (A) 9 %; MCH 30.3 pg (25.0-35.0); MCHC 32.2 g/dL (31.0-37.0); MCV 94.2 fL (80.0-100.0); Mean Platelet Volume 7.8; Monocytes # (A) 0.3 k/uL (0-1.0); Monocytes % (A) 3 %; Neutrophils # (A) 7.8 k/uL (1.3-7.7); Neutrophils % (A) 85 %; Platelet Count 232 k/uL (150-450); RBC 4.14 m/uL (4.30-5.90); RDW 12.5 % (11.5-15.5); WBC 9.1 k/uL (3.8-10.6)
[2024-03-23 07:04] LABS: INR 0.9 (<1.2); Partial Thromboplastin Time 34.6 sec (22.0-30.0); Prothrombin Time 10.5 sec (10.0-12.5)
[2024-03-23 07:08] LABS: ALT 19 U/L (4-49); AST 21 U/L (17-59); African American GFR (CKD) >90 (>60 ml/min/1.73 sqM); Albumin 3.6 g/dL (3.5-5.0); Alkaline Phosphatase 57 U/L (38-126); Anion Gap 5 mmol/L; Blood Urea Nitrogen 24 mg/dL (9-20); Calcium 8.7 mg/dL (8.4-10.2); Carbon Dioxide 25 mmol/L (22-30); Chloride 108 mmol/L (98-107); Glucose 174 mg/dL (74-99); Non-African American GFR(CKD) >90 (>60 ml/min/1.73 sqM); Potassium 4.1 mmol/L (3.5-5.1); Sodium 138 mmol/L (137-145); Total Bilirubin 0.7 mg/dL (0.2-1.3); Total Protein 6.6 g/dL (6.3-8.2)
[2024-03-23] MEDS: HEPARIN SODIUM 1,000 UN/ML (10ML VL) IV PRN (08:06)
--- NOTE | 2024-03-23 11:07 | CA ---
Transthoracic Echo Report Name: Mariano Duvall Age: 53 Gender: M : 1970 Exam Date: 03/23/2024 09:16 Exam Location: [facility] Ht (in): 72 Wt (lb): 222 Ordering Physician: Rachel Ortiz Attending/Referring Phys: [id number], [employer] Maddison Gutierrez, JASON Procedure CPT: Indications: LVF, use definity looking for eosinophilic myocard Cardiac Hx: Technical Quality: Fair Contrast 1: Definity Total Dose (mL): 2 Contrast 2: Total Dose (mL): MEASUREMENTS (Male / Female) Normal Values 2D ECHO LV Diastolic Diameter PLAX 4.2 cm 4.2 - 5.9 / 3.9 - 5.3 cm LV Systolic Diameter PLAX 2.6 cm IVS Diastolic Thickness 1.2 cm 0.6 - 1.0 / 0.6 - 0.9 cm LVPW Diastolic Thickness 1.3 cm 0.6 - 1.0 / 0.6 - 0.9 cm LV Relative Wall Thickness 0.6 RV Internal Dim ED PLAX 3.2 cm LA Systolic Diameter LX 4.7 cm 3.0 - 4.0 / 2.7 - 3.8 cm LV Diastolic Volume MOD BP 119.0 cm??? 67 - 155 / 56 - 104 cm??? LV Systolic Volume MOD BP 39.2 cm??? 22 - 58 / 19 - 49 cm??? LV Ejection Fraction MOD BP 67.1 % >= 55 % LV Cardiac Index MOD BP 3214.7 cm???/min???m??? LV Diastolic Volume MOD 4C 116.4 cm??? LV Systolic Volume MOD 4C 43.2 cm??? LV Ejection Fraction MOD 4C 62.9 % LV Cardiac Index MOD 4C 2949.6 cm???/min???m??? LV Diastolic Length 4C 8.2 cm LV Systolic Length 4C 6.6 cm LV Diastolic Volume MOD 2C 116.3 cm??? LV Systolic Volume MOD 2C 35.4 cm??? LV Ejection Fraction MOD 2C 69.6 % LV Cardiac Index MOD 2C 3257.9 cm???/min???m??? LV Diastolic Length 2C 7.8 cm LV Systolic Length 2C 6.8 cm M-MODE Aortic Root Diameter MM 2.8 cm LA Systolic Diameter MM 3.5 cm LA Ao Ratio MM 1.2 AV Cusp Separation MM 1.9 cm DOPPLER Mitral E Point Velocity 105.8 cm/s Mitral A Point Velocity 103.8 cm/s Mitral E to A Ratio 1.0 MV Deceleration Time 256.2 ms MV E' Velocity 6.7 cm/s Mitral E to MV E' Ratio 15.8 TR Peak Velocity 225.9 cm/s TR Peak Gradient 20.4 mmHg FINDINGS Left Ventricle Left ventricular ejection fraction is estimated at 55-60 %. Mildly increased septal wall thickness. No obvious regional wall motion abnormalities. Left ventricular cavity size normal. Right Ventricle Moderate right ventricular dilatation. Right ventricular systolic pressure within normal limits. Right Atrium Mild right atrial dilatation. Left Atrium Mild left atrial dilatation. Mitral Valve Structurally normal mitral valve. Mild mitral regurgitation. No mitral stenosis. Aortic Valve Trileaflet aortic valve. No aortic stenosis. No aortic regurgitation. Tricuspid Valve Structurally normal tricuspid valve. Mild tricuspid regurgitation. No tricuspid stenosis. Pulmonic Valve Structurally normal pulmonic valve. Trace pulmonic regurgitation. Pericardium No pericardial or pleural effusion. Aorta Normal size aortic root and proximal ascending aorta. CONCLUSIONS 1. Normal left ventricular size and systolic function 2. Mild mitral and tricuspid regurgitation Previewed by: Dr. Lydia Diggs MD (Electronically Signed) Final Date: 23 March 2024 11:05
[2024-03-23 12:42] LABS: Anti-Smith Ab Interp Negative (Negative)
--- NOTE | 2024-03-23 14:36 | P.PN ---
Subjective Progress Note Date: 03/23/24 This is a 53-year-old male patient who was hospitalized for chest pain across his chest radiating to his back worse with breathing. The pain is rather constant with the severity of the pain fluctuating especially with breathing. He was having some sweating and diaphoresis overnight. No radiation to his arms. No nausea. The patient however was getting diaphoretic. Based on that, he was brought into the emergency department for further evaluation. I met this patient approximately a month ago in my office. He came to see me for shortness of breath and diminished level of activity as the patient was getting short of breath upon walking 25 to 50 feet. He had symptoms of constant cough and co ngestion chest tightness and wheezing. At that time, the patient was found to be severely bronchospastic and he had obstructive airway limitation with an FEV1 of 35% predicted with an FEV1 over FVC ratio of 60 with normal total lung capacity. Chest x-ray showed some minimal nonspecific interstitial changes in the lung bases more so on the left. Based on that, I started the patient on a maintenance of prednisone and I started him on Trelegy Ellipta 1 puff a day and Singulair 10 mg p.o. daily. His serum IgE level came back at 167. Aspergillus IgE levels came back negative and the serum eosinophil count was 2970. He is respiratory allergy panel was essentially negative. The patient was started on Dupixent injections and he received his first loading dose. In follow-up, I saw the patient in the office and he was having significant improvement where his FEV1 was up to 75% of predicted. I reviewed the CAT scan of the chest and it showed some nonspecific right upper lobe groundglass opacity measuring 7 mm in size in the right middle lobe opacity measuring 7 mm in size in the right lower lobe measuring 5 mm in size. No honeycombing. No bronchiectasis. He was on a prednisone burst taper which was ultimately weaned off and discontinued. Around 4 to 5 days ago, he developed the above-mentioned symptoms that he came into the emergency department for further investigation. No workup thus far shows a white cell count of 12.6 with a hemoglobin 12.7 and a platelet count of 222. Coagulation profile is within normal limits. D-dimer is at 1.97. BUN is 25 with a creatinine of 0.7 and sodium is at 135. Troponins were elevated and the levels were 0.140.17 0.18-0.16 respectively x 4. His CRP level was 16.2. His UA was positive for ketones. Negative for blood. The viral screen was negative. Based on the EKG, there is some nonspecific ST segment changes yet the cardiac rhythm was felt to be essentially to be in sinus. The patient had a repeat chest x-ray that showed some increased interstitial opacities bilaterally. Based on that, the patient was given a CT angiogram and this showed no evidence of any pulmonary embolism. There are some scattered pulmonary nodules throughout the lungs there are more than as compared to the previous study. Infectious/inflammatory causes were obviously entertained. I compared the current CAT scan with the earlier CAT scans of the chest and center of this pulmonary result of the new onset. Cardiology has been consulted. E chocardiogram is in progress. The patient was started on a combination of Rocephin and Zithromax. Pulmonary consultation was requested accordingly. The patient's oxygenation is 95% on room air. On 03/23/2024, the patient is feeling significantly better compared to yesterday. Pain is subsided. No significant chest pain. No shortness of breath. No significant cough or wheezing. Echocardiogram was done and the patient has a normal ejection fraction of 55 to 60%. Mildly increased septal wall thickness. No obvious wall motion abnormalities. There is evidence of mild mitral and tricuspid regurgitation. There is mild to moderate RV dilatation. RV systolic pressures are essentially within normal limits. BRITTNY was negative. BRITTNY screen was negative. Awaiting ANCA levels. Meanwhile, the patient is still on IV heparin. White cell count is 11.1 with a hemoglobin 12.6 and a platelet count of 232. BUN is 24 and creatinine 0.5. Sodium is at 138. No other significant complaints otherwise for now. His condition is much improved compared to yesterday. Objective - Vital Signs Vital signs: Vital Signs Temp 97.1 F L 03/23/24 12:20 Pulse 104 H 03/23/24 12:20 Resp 18 03/23/24 12:20 BP 116/67 03/23/24 12:20 Pulse Ox 95 03/23/24 12:20 FiO2 Intake & Output 03/22/24 03/23/24 03/23/24 18:59 06:59 18:59 Intake Total 1261.167 186.833 158.133 Output Total 120 Balance 1141.167 186.833 158.133 Weight 97.9 kg Intake: Intake, IV Titration 63.167 186.833 40.133 Amount Heparin Sod,Pork in 0.45% 63.167 186.833 40.133 NaCl 25,000 unit In 0.45 % NaCl 1 250ml.bag @ 9. 9108 UNITS/KG/HR 10 mls/ hr IV .Q24H [facility] Rx#: [id number] Oral 1198 118 Output: Urine 120 Other: Voiding Method Toilet Toilet # Voids 1 # Bowel Movements 0 - Exam Patient is currently on room air oxygen,, comfortable. Head exam was generally normal. There was no scleral icterus or corneal arcus. Mucous membranes were moist. Neck was supple and without jugular venous distension, thyromegaly, or carotid bruits. Carotids were easily palpable bilaterally. There was no adenopathy. Lung sounds are diminished along with some few scattered expiratory wheeze Cardiac exam revealed the PMI to be normally situated and sized. The rhythm was regular and no extrasystoles were noted during several minutes of auscultation. The first and second heart sounds were normal and physiologic splitting of the second heart sound was noted. There were no murmurs, rubs, clicks, or gallops. Abdominal exam revealed normal bowel sounds. The abdomen was soft, non-tender, and without masses, organomegaly, or appreciable enlargement of the abdominal aorta. Examination of the extremities revealed easily palpable radial, femoral and pedal pulses. There was no cyanosis, clubbing or edema. Examination of the skin revealed no evidence of significant rashes, suspicious appearing nevi or other concerning lesions. Neurologically, the patient is awake and alert and the patient does not have any focal neurological deficit. Cranial nerves are essentially intact. - Labs CBC & Chem 7: 03/23/24 06:33 03/23/24 06:33 Labs: Abnormal Lab Results - Last 24 Hours (Table) 03/22/24 03/22/24 03/23/24 Range/Units 13:18 21:34 06:32 RBC (4.30-5.90) m/uL Hgb (13.0-17.5) gm/dL Neutrophils # (1.3-7.7) k/uL Lymphocytes # (1.0-4.8) k/uL ESR 47 H (0-20) mm/Hr APTT 31.1 H (22.0-30.0) sec Chloride (98-107) mmol/L BUN (9-20) mg/dL Creatinine (0.66-1.25) mg/dL Glucose (74-99) mg/dL POC Glucose (mg/dL) 185 H (70-110) mg/dL 03/23/24 03/23/24 03/23/24 Range/Units 06:33 06:33 06:33 RBC 4.14 L (4.30-5.90) m/uL Hgb 12.6 L (13.0-17.5) gm/dL Neutrophils # 7.8 H (1.3-7.7) k/uL Lymphocytes # 0.8 L (1.0-4.8) k/uL ESR (0-20) mm/Hr APTT 34.6 H (22.0-30.0) sec Chloride 108 H (98-107) mmol/L BUN 24 H (9-20) mg/dL Creatinine 0.50 L (0.66-1.25) mg/dL Glucose 174 H (74-99) mg/dL POC Glucose (mg/dL) (70-110) mg/dL Assessment and Plan Plan: Acute chest pain, diffuse, pleuritic, not typical of any anginal pain yet coronary artery disease obviously a concern as the patient has abnormal troponins and this needs to be further worked up. Nonspecific EKG changes. Patient is currently on IV heparin. CT of the chest is negative for any pulm embolism. Echocardiogram is essentially within normal limits. 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 Serum IgE level was 167. Respiratory allergy panel was negative. Obviously the patient has abnormal nodular pulm infiltrates bilaterally, nonspecific. There is some interval progression compared to the earlier CAT scan of the chest that was done on this patient few weeks back. He does have chronic sinus disease. Possibility of Churg Raúl syndrome, eosinophilic granulomatosis with polyangiitis cannot be completely ruled out. Other possibilities include chronic eosinophilic pneumonias. Hypereosinophilic syndrome is felt to be less likely. History of sinus polyposis Allergic rhinitis Chronic back pain Plan My overall suspicion is high for an underlying chronic eosinophilic granulomatosis with polyangiitis/Churg Raúl syndrome. The patient has responded very nicely to systemic steroids and the patient is significant improved over the past 24 hours. Highly doubt pneumonia. The cardiac manifestation also can be related to his underlying condition. Echocardiogram is essentially within normal limits. Consult with cardiology Continue IV heparin May consider an outpatient cardiac stress test CT of the chest was noted and there is no evidence of any pulmonary embolism The pulmonary nodular changes and groundglass changes are most likely noninfectious in nature. Procalcitonin level is negative and the viral screen is also negative. 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 A waiting ANCA levels Continue Symbicort for now and the patient should be able to use the [employer] Ell ipta from home if the medication is available in combination with Singulair 10 mg p.o. daily. May consider bronchoscopy at the later stages no definite diagnosis has been established. Will continue to follow
--- NOTE | 2024-03-23 15:16 | P.PN ---
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 Amador, remote history of tobacco use. We have been asked to evaluate the patient for chest pain. Patient states that he developed shortness of breath and then developed chest pain at the same time which is not usual for him. He also has fever, cough. He denies sputum production. He denies shortness of breath at this time. He denies smoking, tobacco use or marijuana use. His father had history of atrial fibrillation but no significant coronary artery disease. Blood pressure 116/73, heart rate 114, pulse ox 95% on room air. Patient has been started on IV antibiotics, status post 1.7 L IV fluid bolus EKG: Sinus tachycardia 107 bpm, sinus tachycardia 93 bpm Chest x-ray: Diffuse abnormal interstitial opacities. Etiologies include mild interstitial pulmonary edema, atypical pneumonias, interstitial pneumonitis. Laboratory studies: WBC 12.6, hemoglobin 12.7. Sodium 135, potassium 4.4, BUN 25 and creatinine 0.75. Troponin 0.142, 0.177, 0.181, 0.161. Influenza A, influenza B, RSV, COVID-19 not detected. Home cardiac medications: Crestor 5 mg daily 03/23 Blood pressure 107/62, heart rate 96, pulse ox 96% on room air. Patient had a temperature max 101.3 last evening. Echocardiogram reveals EF of 55 to 60%. Mild mitral and tricuspid regurgitation. Reviewed results with the patient and family member. Patient is currently on a heparin drip which will be continued for 48 hours. Patient started on aspirin 81 mg daily. Discussed with patient that he will follow-up in the office and have outpatient stress testing done and he is agreeable to that. Respiratory status is improving. Possible discharge on Tuesday. Physical examination: Gen: This is a 53-year-old male in no acute distress VS: reviewed HEENT: Head is atraumatic, normocephalic. Pupils equal, round. Sclerae is anicteric. NECK: Supple. No JVD. LUNGS: Few scattered rhonchi. No intercostal retractions. HEART: Regular rate and rhythm. No murmur. ABDOMEN: Soft No tenderness. EXTREMITIES: No pedal edema. No calf tenderness. NEUROLOGICAL: Patient is awake, alert and oriented x3. Assessment: Possible Non-ST elevated UT versus type II UT, patient has elevated but flat troponins Eosinophilic asthma Hyperlipidemia Asthma Remote history of tobacco use Plan: Continue following cardiac medications: Aspirin 81 mg daily, atorvastatin 10 mg a day and will resume back to Crestor at discharge, Toprol XL 25 mg daily Continue patient on heparin drip for total of 48 hours, completed 7/6 AM Continue antibiotics Plan for patient to follow-up in the office with Dr. Sanders in 1 to 2 weeks after discharge. Outpatient stress testing will be addressed at that time. Nurse practitioner note has been reviewed, I agree with documented findings and plan of care. Patient was seen and examined. Objective - Vital Signs Vital signs: Vital Signs Temp 97.1 F L 03/23/24 08:10 Pulse 96 03/23/24 08:10 Resp 18 03/23/24 08:10 BP 107/62 03/23/24 08:10 Pulse Ox 96 03/23/24 08:10 FiO2 Intake & Output 03/22/24 03/23/24 03/23/24 18:59 06:59 18:59 Intake Total 1261.167 186.833 158.133 Output Total 120 Balance 1141.167 186.833 158.133 Weight 97.9 kg Intake: Intake, IV Titration 63.167 186.833 40.133 Amount Heparin Sod,Pork in 0.45% 63.167 186.833 40.133 NaCl 25,000 unit In 0.45 % NaCl 1 250ml.bag @ 9. 9108 UNITS/KG/HR 10 mls/ hr IV .Q24H [facility] Rx#: [id number] Oral [id number] Output: Urine 120 Other: Voiding Method Toilet Toilet # Voids 1 - Labs CBC & Chem 7: 03/23/24 06:33 03/23/24 06:33 Labs: Abnormal Lab Results - Last 24 Hours (Table) 03/22/24 03/22/24 03/22/24 Range/Units 12:58 13:18 13:18 RBC (4.30-5.90) m/uL Hgb (13.0-17.5) gm/dL Neutrophils # (1.3-7.7) k/uL Lymphocytes # (1.0-4.8) k/uL ESR 47 H (0-20) mm/Hr APTT (22.0-30.0) sec D-Dimer 1.89 H (<0.60) mg/L FEU Chloride (98-107) mmol/L BUN (9-20) mg/dL Creatinine (0.66-1.25) mg/dL Glucose (74-99) mg/dL POC Glucose (mg/dL) (70-110) mg/dL C-Reactive Protein 16.2 H (<1.0) mg/dL Urine Protein (Negative) Urine Ketones (Negative) 03/22/24 03/22/24 03/22/24 Range/Units 13:30 13:56 21:34 RBC (4.30-5.90) m/uL Hgb (13.0-17.5) gm/dL Neutrophils # (1.3-7.7) k/uL Lymphocytes # (1.0-4.8) k/uL ESR (0-20) mm/Hr APTT 31.1 H (22.0-30.0) sec D-Dimer 1.97 H (<0.60) mg/L FEU Chloride (98-107) mmol/L BUN (9-20) mg/dL Creatinine (0.66-1.25) mg/dL Glucose (74-99) mg/dL POC Glucose (mg/dL) (70-110) mg/dL C-Reactive Protein (<1.0) mg/dL Urine Protein Trace H (Negative) Urine Ketones 1+ H (Negative) 03/23/24 03/23/24 03/23/24 Range/Units 06:32 06:33 06:33 RBC 4.14 L (4.30-5.90) m/uL Hgb 12.6 L (13.0-17.5) gm/dL Neutrophils # 7.8 H (1.3-7.7) k/uL Lymphocytes # 0.8 L (1.0-4.8) k/uL ESR (0-20) mm/Hr APTT 34.6 H (22.0-30.0) sec D-Dimer (<0.60) mg/L FEU Chloride (98-107) mmol/L BUN (9-20) mg/dL Creatinine (0.66-1.25) mg/dL Glucose (74-99) mg/dL POC Glucose (mg/dL) 185 H (70-110) mg/dL C-Reactive Protein (<1.0) mg/dL Urine Protein (Negative) Urine Ketones (Negative) 03/23/24 Range/Units 06:33 RBC (4.30-5.90) m/uL Hgb (13.0-17.5) gm/dL Neutrophils # (1.3-7.7) k/uL Lymphocytes # (1.0-4.8) k/uL ESR (0-20) mm/Hr APTT (22.0-30.0) sec D-Dimer (<0.60) mg/L FEU Chloride 108 H (98-107) mmol/L BUN 24 H (9-20) mg/dL Creatinine 0.50 L (0.66-1.25) mg/dL Glucose 174 H (74-99) mg/dL POC Glucose (mg/dL) (70-110) mg/dL C-Reactive Protein (<1.0) mg/dL Urine Protein (Negative) Urine Ketones (Negative)
[2024-03-23 21:23] LABS: Glucose,Whole Blood 175 mg/dL (70-110)
[2024-03-24 05:52] LABS: Glucose,Whole Blood 149 mg/dL (70-110)
[2024-03-24 08:02] VITALS: TEMP 97.7
[2024-03-24] MEDS: ASPIRIN 81 MG PO SCH (08:03)
[2024-03-24 11:21] VITALS: BP 117/66; PULSE 98; RESP 18
[2024-03-24] MEDS: predniSONE 20 MG TAB PO SCH (11:22)
[2024-03-24 11:37] LABS: Glucose,Whole Blood 297 mg/dL (70-110)
[2024-03-24] MEDS ORDERED: DEXTROSE 50% SYRINGE 50 ML IVP PRN ×2 (11:51)
[2024-03-24] MEDS: INSULIN ASPART (NovoLOG) 100 UNIT/ML VIAL SQ SCH (11:58)
--- NOTE | 2024-03-24 12:22 | P.PN ---
Subjective Progress Note Date: 03/24/24 This is a 53-year-old male patient who was hospitalized for chest pain across his chest radiating to his back worse with breathing. The pain is rather constant with the severity of the pain fluctuating especially with breathing. He was having some sweating and diaphoresis overnight. No radiation to his arms. No nausea. The patient however was getting diaphoretic. Based on that, he was brought into the emergency department for further evaluation. I met this patient approximately a month ago in my office. He came to see me for shortness of breath and diminished level of activity as the patient was getting short of breath upon walking 25 to 50 feet. He had symptoms of constant cough and co ngestion chest tightness and wheezing. At that time, the patient was found to be severely bronchospastic and he had obstructive airway limitation with an FEV1 of 35% predicted with an FEV1 over FVC ratio of 60 with normal total lung capacity. Chest x-ray showed some minimal nonspecific interstitial changes in the lung bases more so on the left. Based on that, I started the patient on a maintenance of prednisone and I started him on Trelegy Ellipta 1 puff a day and Singulair 10 mg p.o. daily. His serum IgE level came back at 167. Aspergillus IgE levels came back negative and the serum eosinophil count was 2970. He is respiratory allergy panel was essentially negative. The patient was started on Dupixent injections and he received his first loading dose. In follow-up, I saw the patient in the office and he was having significant improvement where his FEV1 was up to 75% of predicted. I reviewed the CAT scan of the chest and it showed some nonspecific right upper lobe groundglass opacity measuring 7 mm in size in the right middle lobe opacity measuring 7 mm in size in the right lower lobe measuring 5 mm in size. No honeycombing. No bronchiectasis. He was on a prednisone burst taper which was ultimately weaned off and discontinued. Around 4 to 5 days ago, he developed the above-mentioned symptoms that he came into the emergency department for further investigation. No workup thus far shows a white cell count of 12.6 with a hemoglobin 12.7 and a platelet count of 222. Coagulation profile is within normal limits. D-dimer is at 1.97. BUN is 25 with a creatinine of 0.7 and sodium is at 135. Troponins were elevated and the levels were 0.140.17 0.18-0.16 respectively x 4. His CRP level was 16.2. His UA was positive for ketones. Negative for blood. The viral screen was negative. Based on the EKG, there is some nonspecific ST segment changes yet the cardiac rhythm was felt to be essentially to be in sinus. The patient had a repeat chest x-ray that showed some increased interstitial opacities bilaterally. Based on that, the patient was given a CT angiogram and this showed no evidence of any pulmonary embolism. There are some scattered pulmonary nodules throughout the lungs there are more than as compared to the previous study. Infectious/inflammatory causes were obviously entertained. I compared the current CAT scan with the earlier CAT scans of the chest and center of this pulmonary result of the new onset. Cardiology has been consulted. E chocardiogram is in progress. The patient was started on a combination of Rocephin and Zithromax. Pulmonary consultation was requested accordingly. The patient's oxygenation is 95% on room air. On 03/23/2024, the patient is feeling significantly better compared to yesterday. Pain is subsided. No significant chest pain. No shortness of breath. No significant cough or wheezing. Echocardiogram was done and the patient has a normal ejection fraction of 55 to 60%. Mildly increased septal wall thickness. No obvious wall motion abnormalities. There is evidence of mild mitral and tricuspid regurgitation. There is mild to moderate RV dilatation. RV systolic pressures are essentially within normal limits. BRITTNY was negative. BRITTNY screen was negative. Awaiting ANCA levels. Meanwhile, the patient is still on IV heparin. White cell count is 11.1 with a hemoglobin 12.6 and a platelet count of 232. BUN is 24 and creatinine 0.5. Sodium is at 138. No other significant complaints otherwise for now. His condition is much improved compared to yesterday. On 03/24/2024, the patient is feeling great. No chest pain. No shortness of breath. No cough. No sputum production. No bronchospasm. No wheezing. BRITTNY has been negative. QUIQUE screen is negative. ANCA levels are still pending for now. He has no specific complaints. Echocardiogram showed normal segmental wall motion abnormalities and the patient has mildly dysfunction. Objective - Vital Signs Vital signs: Vital Signs Temp 97.7 F 03/24/24 08:00 Pulse 104 H 03/24/24 09:46 Resp 16 03/24/24 09:46 BP 106/65 03/24/24 08:00 Pulse Ox 95 03/24/24 08:42 FiO2 Intake & Output 03/23/24 03/24/24 03/24/24 18:59 06:59 18:59 Intake Total 276.133 260.500 660 Balance 276.133 260.500 660 Weight 90.8 kg Intake: Intake, IV Titration 40.133 260.500 Amount Heparin Sod,Pork in 0.45% 40.133 210.500 NaCl 25,000 unit In 0.45 % NaCl 1 250ml.bag @ 9. 9108 UNITS/KG/HR 10 mls/ hr IV .Q24H RIKY Rx#: [id number] cefTRIAXone 2 gm In 50 Sodium Chloride 0.9% 50 ml @ 100 mls/hr IVPB DAILY@2100 RIKY Rx#: [id number] Oral 236 660 Other: Voiding Method Toilet Toilet # Voids 2 # Bowel Movements 0 - Exam Patient is currently on room air oxygen,, comfortable. Head exam was generally normal. There was no scleral icterus or corneal arcus. Mucous membranes were moist. Neck was supple and without jugular venous distension, thyromegaly, or carotid bruits. Carotids were easily palpable bilaterally. There was no adenopathy. Lung sounds are diminished along with some few scattered expiratory wheeze Cardiac exam revealed the PMI to be normally situated and sized. The rhythm was regular and no extrasystoles were noted during several minutes of auscultation. The first and second heart sounds were normal and physiologic splitting of the second heart sound was noted. There were no murmurs, rubs, clicks, or gallops. Abdominal exam revealed normal bowel sounds. The abdomen was soft, non-tender, and without masses, organomegaly, or appreciable enlargement of the abdominal aorta. Examination of the extremities revealed easily palpable radial, femoral and pedal pulses. There was no cyanosis, clubbing or edema. Examination of the skin revealed no evidence of significant rashes, suspicious appearing nevi or other concerning lesions. Neurologically, the patient is awake and alert and the patient does not have any focal neurological deficit. Cranial nerves are essentially intact. - Labs CBC & Chem 7: 03/23/24 06:33 03/23/24 06:33 Labs: Abnormal Lab Results - Last 24 Hours (Table) 03/23/24 03/23/24 03/24/24 Range/Units 19:19 21:21 02:54 APTT 38.4 H 50.2 H (22.0-30.0) sec POC Glucose (mg/dL) 175 H (70-110) mg/dL 03/24/24 Range/Units 05:50 APTT (22.0-30.0) sec POC Glucose (mg/dL) 149 H (70-110) mg/dL Assessment and Plan Plan: Acute chest pain, diffuse, pleuritic, not typical of any anginal pain yet coronary artery disease obviously a concern as the patient has abnormal troponins and this needs to be further worked up. Nonspecific EKG changes. Patient is currently on IV heparin. CT of the chest is negative for any pulm embolism. Echocardiogram is essentially within normal limits. 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 Serum IgE level was 167. Respiratory allergy panel was negative. Obviously the patient has abnormal nodular pulm infiltrates bilaterally, nonspecific. There is some interval progression compared to the earlier CAT scan of the chest that was done on this patient few weeks back. He does have chronic sinus disease. Possibility of Churg Arúl syndrome, eosinophilic granulomatosis with polyangiitis cannot be completely ruled out. Other possibilities include chronic eosinophilic pneumonias. Hypereosinophilic syndrome is felt to be less likely. History of sinus polyposis Allergic rhinitis Chronic back pain Plan My overall suspicion is high for an underlying chronic eosinophilic granulomatosis with polyangiitis/Churg Raúl syndrome. The patient has responded very nicely to systemic steroids and the patient is significant improved considerably.. Highly doubt pneumonia. The cardiac manifestation also can be related to his underlying condition. Echocardiogram is essentially within normal limits. May consider an outpatient cardiac stress test and possibly a cardiac MRI pressure with his suspected condition of eosinophilic granulomatosis with polyangiitis. CT of the chest was noted and there is no evidence of any pulmonary embolism The pulmonary nodular changes and groundglass changes are most likely noninfectious in nature. Procalcitonin level is negative and the viral screen is also negative. 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 Awaiting ANCA levels Continue Symbicort for now and the patient should be able to use the Trelegy Ellipta from home if the medication is available in combination with Singulair 10 mg p.o. daily. The patient can be discharged home on 40 mg of prednisone and the patient was seen today in the office on 03/27/2024 I will do a gradual taper of his prednisone. 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 He will be able to go home today. No need for antibiotics. Will follow-up in the office.
--- NOTE | 2024-03-24 14:45 | P.PN ---
Subjective Progress Note Date: 03/24/24 This is a 53-year-old male with past medical history of hyperlipidemia, eosinophilic asthma recently started on Dupilumab and follows with Dr. Amador, remote history of tobacco use. We have been asked to evaluate the patient for chest pain. Patient states that he developed shortness of breath and then developed chest pain at the same time which is not usual for him. He also has fever, cough. He denies sputum production. He denies shortness of breath at this time. He denies smoking, tobacco use or marijuana use. His father had history of atrial fibrillation but no significant coronary artery disease. Blood pressure 116/73, heart rate 114, pulse ox 95% on room air. Patient has been started on IV antibiotics, status post 1.7 L IV fluid bolus EKG: Sinus tachycardia 107 bpm, sinus tachycardia 93 bpm Chest x-ray: Diffuse abnormal interstitial opacities. Etiologies include mild interstitial pulmonary edema, atypical pneumonias, interstitial pneumonitis. Laboratory studies: WBC 12.6, hemoglobin 12.7. Sodium 135, potassium 4.4, BUN 25 and creatinine 0.75. Troponin 0.142, 0.177, 0.181, 0.161. Influenza A, influenza B, RSV, COVID-19 not detected. Home cardiac medications: Crestor 5 mg daily 03/23 Blood pressure 107/62, heart rate 96, pulse ox 96% on room air. Patient had a temperature max 101.3 last evening. Echocardiogram reveals EF of 55 to 60%. Mild mitral and tricuspid regurgitation. Reviewed results with the patient and family member. Patient is currently on a heparin drip which will be continued for 48 hours. Patient started on aspirin 81 mg daily. Discussed with patient that he will follow-up in the office and have outpatient stress testing done and he is agreeable to that. Respiratory status is improving. Possible discharge on Tuesday. 03/24/2024 Patient is doing well from cardiovascular standpoint. Hemodynamically stable denies any chest pain chest pressure shortness of breath. Echo showed EF 55 to 60%, mild RV dilatation, normal RV systolic function, normal LV systolic function Physical examination: Gen: This is a 53-year-old male in no acute distress VS: reviewed HEENT: Head is atraumatic, normocephalic. Pupils equal, round. Sclerae is anic teric. NECK: Supple. No JVD. LUNGS: Few scattered rhonchi. No intercostal retractions. HEART: Regular rate and rhythm. No murmur. ABDOMEN: Soft No tenderness. EXTREMITIES: No pedal edema. No calf tenderness. NEUROLOGICAL: Patient is awake, alert and oriented x3. Assessment: Possible Non-ST elevated PR versus type II PR, patient has elevated but flat troponins Eosinophilic asthma, Hyperlipidemia Asthma Remote history of tobacco use Plan: Continue following cardiac medications: Aspirin 81 mg daily, atorvastatin 10 mg a day and will resume back to [facility] at discharge, Toprol XL 25 mg daily Patient echocardiogram showed preserved LV systolic function with no concerns of eosinophilic cardiomyopathy at this time. 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 Would agree with doing a short course of steroids Recommend outpatient follow-up with Dr. Sanders, consider cardiac MRI on outpatient basis Repeat NT proBNP levels and troponin levels in 1 week Objective - Vital Signs Vital signs: Vital Signs Temp 97.7 F 03/24/24 08:00 Pulse 98 03/24/24 11:20 Resp 18 03/24/24 11:20 BP 117/66 03/24/24 11:20 Pulse Ox 97 03/24/24 11:20 FiO2 Intake & Output 03/23/24 03/24/24 03/24/24 18:59 06:59 18:59 Intake Total 276.133 260.500 780 Output Total 0 Balance 276.133 260.500 780 Weight 90.8 kg Intake: Intake, IV Titration 40.133 260.500 Amount Heparin Sod,Pork in 0.45% 40.133 210.500 NaCl 25,000 unit In 0.45 % NaCl 1 250ml.bag @ 9. 9108 UNITS/KG/HR 10 mls/ hr IV .Q24H [facility]IKY Rx#: [id number] cefTRIAXone 2 gm In 50 Sodium Chloride 0.9% 50 ml @ 100 mls/hr IVPB DAILY@2100 RIKY Rx#: [id number] Oral 236 780 Output: Gastric Drainage 0 Urine 0 Stool 0 Urine/Stool Mix 0 Emesis 0 Oral Regurgitation 0 Other 0 Other: Voiding Method Toilet Toilet # Voids 2 0 # Bowel Movements 0 0 - Labs CBC & Chem 7: 03/23/24 06:33 03/23/24 06:33 Labs: Abnormal Lab Results - Last 24 Hours (Table) 03/23/24 03/23/2403/24/24 Range/Units 19:19 21:21 02:54 APTT 38.4 H 50.2 H (22.0-30.0) sec POC Glucose (mg/dL) 175 H (70-110) mg/dL 03/24/24 03/24/24 Range/Units 05:50 11:35 APTT (22.0-30.0) sec POC Glucose (mg/dL) 149 H 297 H (70-110) mg/dL Microbiology - Last 24 Hours (Table) 03/22/24 13:18 Blood Culture - Preliminary Blood
[2024-03-24] MEDS ORDERED: IPRATROPIUM 0.5 MG/2.5 ML NEBU INHALATION SCH (20:00)
[2024-03-26 15:35] LABS: C-ANCA <1:20 Titer (<1:20)
== END 2024-03-24 15:30 | disposition home or self-care (01) ==
LOC: EC 17:51 → 3SCARD 22:57
PROVIDERS: ADMIT Internal Medicine; ATTEND Internal Medicine
DX: R07.89 Other chest pain (principal); R50.9 Fever, unspecified; J82.83 Eosinophilic asthma; M54.50 Low back pain, unspecified; G89.29 Other chronic pain; E78.5 Hyperlipidemia, unspecified; Z88.0 Allergy status to penicillin; Z83.3 Family history of diabetes mellitus; Z87.891 Personal history of nicotine dependence; J32.4 Chronic pansinusitis
CPT/HCPCS: 96376 ×3; 96366 ×3; 96367; 96375; 96361 ×2; 96365; 99285; 36415; 94640 ×6; 94760 ×2; 93005; 93306; 86255; 85379; 86235 ×2; 80061; 80053 ×2; 85652; 83605; 83735; 84484 ×2; 85025 ×2; 85610 ×2; 85730 ×4; 86140; 82272; 81003; 87040; 86038; 87636; 71046; 71275; G0378 ×4; J0696 ×3; Q9957; J1644 ×4; J7512; Q9967; J2919 ×3

== ENCOUNTER → 2024-04-03 | Outpatient (CLI) | payer BC ==
[2024-04-03 11:14] LABS: HCT 43.3 % (39.6-50.0); HGB 13.9 g/dL (13.0-17.0); MCH 30.2 pg (27.0-32.0); MCHC 32.1 g/dL (32.0-37.0); MCV 94.1 FL (80.0-97.0); Mean Platelet Volume 10.1 FL (9.5-12.2); NRBC Per 100 WBC 0 X 10*3/uL (0.00-0.01); Platelet Count 314 X 10*3/uL (140-440); RDW 13.3 % (11.5-14.5); WBC 12.14 X 10*3/uL (4.50-10.00)
[2024-04-03 12:06] LABS: ALT 36 U/L (10-49); AST 20 U/L (14-35); Albumin 4.4 g/dL (3.8-4.9); Albumin/Globulin Ratio 1.83 Ratio (1.60-3.17); Alkaline Phosphatase 58 U/L (41-126); BUN/Creat Ratio 40.25 Ratio (12.00-20.00); Blood Urea Nitrogen 32.2 mg/dL (9.0-27.0); Calcium 9.2 mg/dL (8.7-10.3); Carbon Dioxide 25.9 mmol/L (21.6-31.8); Chloride 102 mmol/L (96-109); Globulin 2.4 g/dL (1.6-3.3); Glucose 90 mg/dL (70-110); NT-Pro-B-Type Natriuretic Pept 81 pg/mL (0-125); Potassium 4.2 mmol/L (3.5-5.5); Sodium 140 mmol/L (135-145); Total Bilirubin 0.9 mg/dL (0.3-1.2); Total Protein 6.8 g/dL (6.2-8.2)
== END | disposition home or self-care (01) ==
LOC: LABWHC1 07:04
PROVIDERS: ATTEND Student in an Organized Health Care Education/Training Program
DX: I51.4 Myocarditis, unspecified (principal); E03.9 Hypothyroidism, unspecified; N18.9 Chronic kidney disease, unspecified; D63.1 Anemia in chronic kidney disease
CPT/HCPCS: 36415; 80053; 83880; 84443; 84484; 85027

== ENCOUNTER → 2024-07-10 | Outpatient (CLI) | payer BC | END | disposition home or self-care (01) | LOC: LABWHC1 06:56 | PROVIDERS: ATTEND Internal Medicine Critical Care Medicine | DX: J45.909 Unspecified asthma, uncomplicated (principal) | CPT/HCPCS: 36415; 85008 ==

== ENCOUNTER 2024-11-02 13:08 | Inpatient (IN) | payer BC ==
--- NOTE | 2024-11-02 13:30 | ED ---
General Adult HPI - General Chief complaint: Shortness of Breath Stated complaint: ROSIE Time Seen by Provider: 11/02/24 13:14 Source: patient, family, RN notes reviewed Mode of arrival: ambulatory Limitations: no limitations - History of Present Illness Initial comments: Patient is a 54-year-old male present to the emergency department with concerns with difficulty breathing. Onset of symptoms was yesterday. 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 Patient has had fever at home. No Tylenol or Motrin today. Patient does have some discomfort of his upper back and chest however states he does get this when he gets ill. Patient does have dry nonproductive cough. Patient feels short of breath and wheezy. - Related Data Home Medications Medication Instructions Recorded Confirmed Montelukast [Singulair] 10 mg PO HS 07/25/23 11/02/24 Albuterol Inhaler [Ventolin Hfa 2 puff INHALATION RT-Q4H PRN 03/21/24 11/02/24 Inhaler] Albuterol Nebulized [Ventolin 2.5 mg INHALATION RT-DAILY 03/21/24 11/02/24 Nebulized] Fluticasone/Umeclidin/Vilanter 1 puff INHALATION RT-DAILY 03/21/24 11/02/24 [Trelegy Ellipta 200-62.5-25] Rosuvastatin Calcium [Crestor] 5 mg PO DAILY 03/21/24 11/02/24 Albuterol Nebulized [Ventolin 2.5 mg INHALATION RT-BID PRN 11/02/24 11/02/24 Nebulized] Benralizumab [Fasenra Pen] 30 mg SQ Q56D 11/02/24 11/02/24 metFORMIN HCL [Glucophage] 500 mg PO BID 11/02/24 11/02/24 predniSONE [Deltasone] 20 mg PO DAILY 11/02/24 11/02/24 Allergies Allergy/AdvReac Type Severity Reaction Status Date / Time Penicillins Allergy Rash/Hives Verified 11/02/24 13:38 Review of Systems ROS Statement: Those systems with pertinent positive or pertinent negative responses have been documented in the HPI. ROS Other: All systems not noted in ROS Statement are negative. Constitutional: Reports: as per HPI, fever, chills Eyes: Denies: eye pain ENT: Denies: ear pain Respiratory: Reports: as per HPI, cough, dyspnea, wheezes Cardiovascular: Reports: as per HPI, chest pain Endocrine: Reports: fatigue Gastrointestinal: Denies: abdominal pain Musculoskeletal: Reports: as per HPI Skin: Denies: rash Neurological: Denies: weakness Past Medical History Past Medical History: Asthma, Hyperlipidemia Additional Past Medical History / Comment(s): sinus and allergy issues History of Any Multi-Drug Resistant Organisms: None Reported Past Surgical History: No Surgical Hx Reported Additional Past Surgical History / Comment(s): Jul 2023 sinus sx Past Anesthesia/Blood Transfusion Reactions: No Reported Reaction Additional Past Anesthesia/Blood Transfusion Reaction / Comment(s): No prior blood transfusion. Past Psychological History: No Psychological Hx Reported Smoking Status: Former smoker Past Alcohol Use History: None Reported, Rare - Past Family History Mother Family Medical History: No Reported History Father Family Medical History: AFIB, Diabetes Mellitus General Exam Limitations: no limitations General appearance: alert Head exam: Present: normocephalic Eye exam: Present: normal appearance Neck exam: Present: normal inspection Respiratory exam: Present: respiratory distress, wheezes, decreased breath sounds Cardiovascular Exam: Present: tachycardia GI/Abdominal exam: Present: soft. Absent: tenderness Extremities exam: Present: normal inspection. Absent: pedal edema, calf tenderness Neurological exam: Present: alert Psychiatric exam: Present: normal affect, normal mood Skin exam: Present: normal color Course Vital Signs 11/02/24 11/02/24 11/02/24 13:12 14:04 14:12 Temperature 102.5 F H Pulse Rate 130 H 124 H 128 H Respiratory 28 H 22 22 Rate Blood Pressure 114/66 O2 Sat by Pulse 88 L Oximetry 11/02/24 11/02/24 14:15 15:03 Temperature 100.3 F H Pulse Rate 134 H 121 H Respiratory 20 22 Rate Blood Pressure 135/69 135/64 O2 Sat by Pulse 92 L 94 L Oximetry EKG Findings - EKG Results: EKG: interpreted by ERMD (Left axis. Nonspecific ST-T), sinus rhythm, normal QRS EKG shows: tachycardia Medical Decision Making - Medical Decision Making Was pt. sent in by a medical professional or institution (, PA, MAMMOGRAPHY SUPERVISOR, urgent care, hospital, or intermediate...) When possible be specific @ -No Did you speak to anyone other than the patient for history (EMS, parent, family, police, friend...)? What history was obtained from this source @ -Family is present and helps provide additional diagnosis of eosinophilic asthma Did you review nursing and triage notes (agree or disagree)? Why? @ -I reviewed and agree with nursing and triage notes Were old charts reviewed (outside hosp., previous admission, EMS record, old EKG, old radiological studies, urgent care reports/EKG's, intermediate records)? Report findings @ -No old charts were reviewed Differential Diagnosis (chest pain, altered mental status, abdominal pain women, abdominal pain men, vaginal bleeding, weakness, fever, dyspnea, syncope, headache, dizziness, GI bleed, back pain, seizure, CVA, palpatations, mental health, musculoskeletal)? @ -Differential Dyspnea: Coronary syndrome, arrhythmia, tamponade, asthma, COPD, pulmonary embolism, pneumonia, pneumothorax, pulmonary effusion, anaphylaxis, diabetic ketoacidosis, flailed chest, pulmonary contusion, diaphragmatic rupture, anemia, neuromuscular, this is not meant to be an all-inclusive list. EKG interpreted by me (3pts min.). @ -As above X-rays interpreted by me (1pt min.). @ -Chest x-ray shows no acute process CT interpreted by me (1pt min.). @ -None done U/S interpreted by me (1pt. min.). @ -None done What testing was considered but not performed or refused? (CT, X-rays, U/S, labs)? Why? @ -None What meds were considered but not given or refused? Why? @ -Considered antibiotics however patient is influenza positive Did you discuss the management of the patient with other professionals (professionals i.e. , PA, MAMMOGRAPHY SUPERVISOR, lab, RT, psych nurse, social work specialist, table games manager, teacher, residential care officer, piano case maker)? Give summary @ -[facility] Dr. Luz to admit covering Dr. Vela Was smoking cessation discussed for >3mins.? @ -No Was critical care preformed (if so, how long)? @ -31 minutes critical care time Were there social determinants of health that impacted care today? How? (Homelessness, low income, unemployed, alcoholism, drug addiction, transportation, low edu. Level, literacy, decrease access to med. care, correction, rehab)? @ -No Was there de-escalation of care discussed even if they declined (Discuss DNR or withdrawal of care, Hospice)? DNR status @ -No What co-morbidities impacted this encounter? (DM, HTN, Smoking, COPD, CAD, Canc er, CVA, ARF, Chemo, Hep., AIDS, mental health diagnosis, sleep apnea, morbid obesity)? @ -Eosinophilic asthma Was patient admitted / discharged? Hospital course, mention meds given and route, prescriptions, significant lab abnormalities, going to OR and other pertinent info. @ -Patient presents with dyspnea fever with history of asthma onset yesterday. Influenza positive. Patient is hypoxic and will be admitted for oxygen and further care. Patient reevaluated and updated. Admission orders written Undiagnosed new problem with uncertain prognosis? @ -No Drug Therapy requiring intensive monitoring for toxicity (Heparin, Nitro, Insulin, Cardizem)? @ -No Were any procedures done? @ -No Diagnosis/symptom? @ -Influenza, asthma Acute, or Chronic, or Acute on Chronic? @ -Acute, acute Uncomplicated (without systemic symptoms) or Complicated (systemic symptoms)? @ -Complicated with hypoxia Side effects of treatment? @ -No Exacerbation, Progression, or Severe Exacerbation? @ -No Poses a threat to life or bodily function? How? (Chest pain, [place], [place], pneumonia, PE, COPD, DKA, ARF, appy, cholecystitis, CVA, Diverticulitis, Homicidal, Suicidal, threat to staff... and all critical care pts) @ -Pulmonary function - Lab Data Result diagrams: 11/02/24 13:37 11/02/24 13:37 Lab Results 11/02/24 11/02/24 11/02/24 Range/Units 13:37 13:37 13:37 WBC 10.3 (3.8-10.6) k/uL RBC 4.70 (4.30-5.90) m/uL Hgb 14.6 (13.0-17.5) gm/dL Hct 44.0 (39.0-53.0) % MCV 93.6 (80.0-100.0) fL MCH 31.0 (25.0-35.0) pg MCHC 33.1 (31.0-37.0) g/dL RDW 12.4 (11.5-15.5) % Plt Count 153 (150-450) k/uL MPV 7.8 Neutrophils % 89 % Lymphocytes % 1 % Monocytes % 8 % Eosinophils % 0 % Basophils % 0 % Neutrophils # 9.2 H (1.3-7.7) k/uL Lymphocytes # 0.2 L (1.0-4.8) k/uL Monocytes # 0.8 (0-1.0) k/uL Eosinophils # 0.0 (0-0.7) k/uL Basophils # 0.0 (0-0.2) k/uL PT 11.8 (10.0-12.5) sec INR 1.1 (<1.2) APTT 23.2 (22.0-30.0) sec Sodium 135 L (137-145) mmol/L Potassium 3.9 (3.5-5.1) mmol/L Chloride 99 (98-107) mmol/L Carbon Dioxide 26 (22-30) mmol/L Anion Gap 10 mmol/L BUN 24 H (9-20) mg/dL Creatinine 0.71 (0.66-1.25) mg/dL Est GFR (CKD-EPI)AfAm >90 (>60 ml/min/1.73 sqM) Est GFR (CKD-EPI)NonAf >90 (>60 ml/min/1.73 sqM) Glucose 118 H (74-99) mg/dL Plasma Lactic Acid Panfilo (0.7-2.0) mmol/L Calcium 9.3 (8.4-10.2) mg/dL Total Bilirubin 1.7 H (0.2-1.3) mg/dL AST 26 (17-59) U/L ALT 32 (4-49) U/L Alkaline Phosphatase 43 (38-126) U/L Total Protein 7.0 (6.3-8.2) g/dL Albumin 4.7 (3.5-5.0) g/dL Influenza Type A (PCR) (Not Detectd) Influenza Type B (PCR) (Not Detectd) RSV (PCR) (Not Detectd) SARS-CoV-2 (PCR) (Not Detectd) 11/02/24 11/02/24 Range/Units 13:37 13:37 WBC (3.8-10.6) k/uL RBC (4.30-5.90) m/uL Hgb (13.0-17.5) gm/dL Hct (39.0-53.0) % MCV (80.0-100.0) fL MCH (25.0-35.0) pg MCHC (31.0-37.0) g/dL RDW (11.5-15.5) % Plt Count (150-450) k/uL MPV Neutrophils % % Lymphocytes % % Monocytes % % Eosinophils % % Basophils % % Neutrophils # (1.3-7.7) k/uL Lymphocytes # (1.0-4.8) k/uL Monocytes # (0-1.0) k/uL Eosinophils # (0-0.7) k/uL Basophils # (0-0.2) k/uL PT (10.0-12.5) sec INR (<1.2) APTT (22.0-30.0) sec Sodium (137-145) mmol/L Potassium (3.5-5.1) mmol/L Chloride (98-107) mmol/L Carbon Dioxide (22-30) mmol/L Anion Gap mmol/L BUN (9-20) mg/dL Creatinine (0.66-1.25) mg/dL Est GFR (CKD-EPI)AfAm (>60 ml/min/1.73 sqM) Est GFR (CKD-EPI)NonAf (>60 ml/min/1.73 sqM) Glucose (74-99) mg/dL Plasma Lactic Acid Panfilo 1.0 (0.7-2.0) mmol/L Calcium (8.4-10.2) mg/dL Total Bilirubin (0.2-1.3) mg/dL AST (17-59) U/L ALT (4-49) U/L Alkaline Phosphatase (38-126) U/L Total Protein (6.3-8.2) g/dL Albumin (3.5-5.0) g/dL Influenza Type A (PCR) Detected A (Not Detectd) Influenza Type B (PCR) Not Detected (Not Detectd) RSV (PCR) Not Detected (Not Detectd) SARS-CoV-2 (PCR) Not Detected (Not Detectd) Critical Care Time Critical Care Time: Yes Disposition Clinical Impression: Influenza, Asthma Disposition: ADMITTED IP TO THIS HOSP Condition: Serious Is patient prescribed a controlled substance at d/c from ED?: No Referrals: Clary Vela MD [Primary Care Provider] - 1-2 days Time of Disposition: 15:22
[2024-11-02] MEDS: IPRATROPIUM-ALBUTEROL 3 ML NEB INHALATION STA (14:03)
[2024-11-02 14:09] LABS: Basophils % (A) 0 %; Eosinophils % (A) 0 %; HGB 14.6 gm/dL (13.0-17.5); Lymphocytes # (A) 0.2 k/uL (1.0-4.8); Lymphocytes % (A) 1 %; MCHC 33.1 g/dL (31.0-37.0); MCV 93.6 fL (80.0-100.0); Mean Platelet Volume 7.8; Monocytes # (A) 0.8 k/uL (0-1.0); Monocytes % (A) 8 %; Neutrophils # (A) 9.2 k/uL (1.3-7.7); Neutrophils % (A) 89 %; Platelet Count 153 k/uL (150-450); RDW 12.4 % (11.5-15.5); WBC 10.3 k/uL (3.8-10.6)
[2024-11-02 14:17] LABS: INR 1.1 (<1.2); Partial Thromboplastin Time 23.2 sec (22.0-30.0); Prothrombin Time 11.8 sec (10.0-12.5)
[2024-11-02] MEDS: IBUPROFEN 600 MG TAB PO STA (14:21)
[2024-11-02] MEDS: ACETAMINOPHEN TAB 500 MG TAB PO STA (14:22)
[2024-11-02] MEDS: methylPREDNISolone SOD SUCCI 125 MG/2 ML VIAL IV STA (14:22)
[2024-11-02 14:25] LABS: ALT 32 U/L (4-49); AST 26 U/L (17-59); African American GFR (CKD) >90 (>60 ml/min/1.73 sqM); Albumin 4.7 g/dL (3.5-5.0); Alkaline Phosphatase 43 U/L (38-126); Anion Gap 10 mmol/L; Blood Urea Nitrogen 24 mg/dL (9-20); Calcium 9.3 mg/dL (8.4-10.2); Carbon Dioxide 26 mmol/L (22-30); Chloride 99 mmol/L (98-107); Glucose 118 mg/dL (74-99); Non-African American GFR(CKD) >90 (>60 ml/min/1.73 sqM); Potassium 3.9 mmol/L (3.5-5.1); Sodium 135 mmol/L (137-145); Total Bilirubin 1.7 mg/dL (0.2-1.3)
[2024-11-02] MEDS: LACTATED RINGERS 1,000 ML IV SCH (14:25)
[2024-11-02 14:45] LABS: Influenza A Detected (Not Detectd); Influenza B Not Detected (Not Detectd); RSV Not Detected (Not Detectd)
--- NOTE | 2024-11-02 14:46 | XR ---
EXAMINATION TYPE: XR chest 2V DATE OF EXAM: 11/02/2024 2:39 PM COMPARISON: 03/21/2024 CLINICAL INDICATION: Male, 54 years old with history of Fever, TECHNIQUE: XR chest 2V view(s) obtained. FINDINGS: The heart size is normal. The pulmonary vasculature is normal. The lungs are clear. IMPRESSION: 1. No acute pulmonary process. [facility], , 11/02/2024 2:44 PM
[2024-11-02] MEDS: OSELTAMIVIR 75 MG CAP PO SCH (15:05)
[2024-11-02] MEDS ORDERED: NALOXONE 0.4 MG/ML 1 ML VIAL IVP PRN (15:22)
[2024-11-02] MEDS ORDERED: IPRATROPIUM-ALBUTEROL 3 ML NEB INHALATION PRN (15:22)
[2024-11-02] MEDS ORDERED: ALBUTEROL HFA INHALER INHALATION PRN (15:27)
[2024-11-02] MEDS: AUTO INJCT SQ SCH (16:08)
[2024-11-02] MEDS: BENRALIZUMAB 30 MG/ML SQ SCH (16:08)
[2024-11-02] MEDS: IPRATROPIUM-ALBUTEROL 3 ML NEB INHALATION SCH (16:53)
--- NOTE | 2024-11-02 17:22 | P.CNPUL ---
History of Present Illness Consult date: 11/02/24 Requesting physician: Sandrita Cali Reason for consult: dyspnea, cough, asthma Chief complaint: Shortness of breath, fever, cough History of present illness: This is a very pleasant 54-year-old male patient with a known history of hyperlipidemia, diabetes mellitus, former smoker. He also has eosinophilic asthma and follows with Dr. Garcia in our office for the same. He is on Fasenra, Trelegy, Singulair and albuterol. He came to the emergency room today after a rather sudden onset yesterday of shortness of breath, fever and cough. No exposures to sick people. Chest x-ray reveals no acute pulmonary process. White count 10.3. Hemoglobin 14.6. Platelets 153. Sodium 135. Potassium 3.9. Bicarb 26. BUN 24. Creatinine 0.71. Glucose 118. Viral screen positive for influenza A. He is seen today in consultation in the emergency department. He is currently sitting up on a stretcher. He is awake and alert. He is quite short of breath. He is hypoxemic requiring oxygen at 3 L/min per nasal cannula. He is tachycardic. Temperature 100.3. Review of Systems REVIEW OF SYSTEMS: CONSTITUTIONAL: Positive for fever. Denies any recent significant weight loss or weight gain. EYES: Denies change in vision. EARS, NOSE, MOUTH, THROAT: Denies headaches, denies sore throat. CARDIOVASCULAR: Positive for palpitations no syncopal episodes. RESPIRATORY: Positive for shortness of breath, cough, congestion no hemoptysis. GASTROINTESTINAL: Denies change in appetite, denies abdominal pain GENITOURINARY: Denies hematuria, denies infections. MUSKULOSKELETAL: Denies pain, denies swelling. INTEGUMENTARY: Denies rash, denies eczema. NEUROLOGICAL: Denies recent memory loss, no recent seizure activity. PSYCHIATRIC: Denies anxiety, denies depression. HEMATOLOGIC/LYMPHATIC: Denies anemia, denies enlarged lymph nodes. Past Medical History Past Medical History: Asthma, Hyperlipidemia Additional Past Medical History / Comment(s): sinus and allergy issues History of Any Multi-Drug Resistant Organisms: None Reported Past Surgical History: No Surgical Hx Reported Additional Past Surgical History / Comment(s): Jul 2023 sinus sx Past Anesthesia/Blood Transfusion Reactions: No Reported Reaction Additional Past Anesthesia/Blood Transfusion Reaction / Comment(s): No prior blood transfusion. Past Psychological History: No Psychological Hx Reported Smoking Status: Former smoker Past Alcohol Use History: None Reported, Rare - Past Family History Mother Family Medical History: No Reported History Father Family Medical History: AFIB, Diabetes Mellitus Medications and Allergies Home Medications Medication Instructions Recorded Confirmed Type Montelukast [Singulair] 10 mg PO HS 07/25/23 11/02/24 History Albuterol Inhaler [Ventolin Hfa 2 puff INHALATION RT-Q4H PRN 03/21/24 11/02/24 History Inhaler] Albuterol Nebulized [Ventolin 2.5 mg INHALATION RT-DAILY 03/21/24 11/02/24 History Nebulized] Fluticasone/Umeclidin/Vilanter 1 puff INHALATION RT-DAILY 03/21/24 11/02/24 History [Trelegy Ellipta 200-62.5-25] Rosuvastatin Calcium [Crestor] 5 mg PO DAILY 03/21/24 11/02/24 History Albuterol Nebulized [Ventolin 2.5 mg INHALATION RT-BID PRN 11/02/24 11/02/24 History Nebulized] Benralizumab [Fasenra Pen] 30 mg SQ Q56D 11/02/24 11/02/24 History metFORMIN HCL [Glucophage] 500 mg PO BID 11/02/24 11/02/24 History predniSONE [Deltasone] 20 mg PO DAILY 11/02/24 11/02/24 History Allergies Allergy/AdvReac Type Severity Reaction Status Date / Time Penicillins Allergy Rash/Hives Verified 11/02/24 13:38 Physical Exam Osteopathic Statement: *. No significant issues noted on an osteopathic structural exam other than those noted in the History and Physical/Consult. Vitals: Vital Signs Temp Pulse Resp BP Pulse Ox 11/02/24 17:04 109 H 20 11/02/24 16:56 95 11/02/24 16:55 105 H 20 11/02/24 15:03 100.3 F H 121 H 22 135/64 94 L 11/02/24 14:15 134 H 20 135/69 92 L 11/02/24 14:12 128 H 22 11/02/24 14:04 124 H 22 11/02/24 13:12 102.5 F H 130 H 28 H 114/66 88 L Intake and Output 11/02/24 11/02/24 11/02/24 06:59 14:59 22:59 Other: Weight 104.326 kg GENERAL EXAM: Alert, pleasant 54-year-old male, on 3 L nasal cannula, fairly comfortable in no apparent distress. HEAD: Normocephalic. EYES: Normal reaction of pupils, equal size. NOSE: Clear with pink turbinates. THROAT: No erythema or exudates. NECK: No masses, no JVD. CHEST: No chest wall deformity. LUNGS: Equal air entry with bilateral end expiratory wheeze. CVS: S1 and S2 normal with no audible murmur, regular rhythm. ABDOMEN: No hepatosplenomegaly, normal bowel sounds, no guarding or rigidity. SPINE: No scoliosis or deformity SKIN: No rashes CENTRAL NERVOUS SYSTEM: No focal deficits, tone is normal in all 4 extremities. EXTREMITIES: There is no peripheral edema. No clubbing, no cyanosis. Peripheral pulses are intact. Results - Laboratory Findings CBC and BMP: 11/02/24 13:37 11/02/24 13:37 PT/INR, D-dimer PT 11.8 sec (10.0-12.5) 11/02/24 13:37 INR 1.1 (<1.2) 11/02/24 13:37 Abnormal lab findings: Abnormal Labs 11/02/24 11/02/24 11/02/24 13:37 13:37 13:37 Neutrophils # 9.2 H Lymphocytes # 0.2 L Sodium 135 L BUN 24 H Glucose 118 H Total Bilirubin 1.7 H Influenza Type A (PCR) Detected A - Diagnostic Findings Chest x-ray: image reviewed Assessment and Plan Assessment: Acute hypoxemic respiratory failure secondary to an acute exacerbation of moderate persistent chronic bronchial asthma complicated by influenza A Acute influenza A infection Acute asthma exacerbation secondary to above Febrile illness secondary to above Tachycardia secondary to above History of eosinophilic asthma maintained on Fasenra, Trelegy, Singulair and albuterol in the outpatient setting Diabetes mellitus Former smoker Hyperlipidemia Plan: The patient was seen and evaluated Chest x-ray, labs and medications reviewed Initiated on DuoNeb inhalations, Symbicort, Spiriva Initiated on Solu-Medrol, Singulair Initiated on Tamiflu Titrate the FiO2 as tolerated We will continue to follow and make further recommendations based on his clinical status I have personally seen and examined the patient, performed the documentation and the assessment and plan as written. Number of minutes spent on the visit: 20 Dictation was produced using [employer] dictation software. Please excuse any grammatical, word or spelling errors.
[2024-11-02] MEDS: methylPREDNISolone SOD SUCCI 125 MG/2 ML VIAL IV SCH (18:54)
[2024-11-02] MEDS: SYMBICORT 160-4.5 MCG INHALER INHALATION SCH (20:07)
[2024-11-02] MEDS: metFORMIN 500 MG TAB PO SCH (20:30)
[2024-11-02] MEDS: MONTELUKAST 10 MG TAB PO SCH (20:31)
[2024-11-02 21:22] LABS: Glucose,Whole Blood 259 mg/dL (70-110)
[2024-11-02 22:57] LABS: Glucose,Whole Blood 214 mg/dL (70-110)
[2024-11-03] MEDS: INSULIN DETEMIR (LEVEMIR) 100 UNIT/ML SYR SQ SCH (00:14)
[2024-11-03] MEDS: ACETAMINOPHEN TAB 325 MG TAB PO PRN (02:47)
[2024-11-03 06:27] LABS: Glucose,Whole Blood 143 mg/dL (70-110)
[2024-11-03] MEDS: INSULIN ASPART (NovoLOG) 100 UNIT/ML VIAL SQ SCH (06:28)
[2024-11-03] MEDS ORDERED: NON FORMULARY DRUG (Fluticasone/Umeclidin/Vilanter [Trelegy Ellipta 200-62.5-25] 1 EACH Bl INHALATION SCH (08:00)
[2024-11-03] MEDS: ATORVASTATIN 10 MG TAB PO SCH (08:23)
--- NOTE | 2024-11-03 11:42 | P.HPIM ---
History of Present Illness H&P Date: 11/02/24 Chief Complaint: Shortness of Breath 54-year-old male, history of severe bronchial asthma, hypertension, hyperlipidemia, diabetes, present to the emergency department with concerns with difficulty breathing. Onset of symptoms was yesterday. 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 Patient has had fever at home. No Tylenol or Motrin today. Patient does have some discomfort of his upper back and chest however states he does get this when he gets ill. Patient does have dry nonproductive cough. Patient feels short of breath and wheezy. Chest x-ray reveals no acute pulmonary process. EKG reveals sinus tachycardia with nonspecific ST and T wave changes Blood work completed in ED reveals White count 10.3. Hemoglobin 14.6. Platelets 153. Sodium 135. Potassium 3.9. Bicarb 26. BUN 24. Creatinine 0.71. Glucose 118. Viral screen positive for influenza A. Review of Systems REVIEW OF SYSTEMS: CONSTITUTIONAL: No fever, no malaise, no fatigue. HEENT: No recent visual problems or hearing problems. Denied any sore throat. CARDIOVASCULAR: No chest pain, orthopnea, PND, no palpitations, no syncope. PULMONARY: No shortness of breath, no cough, no hemoptysis. GASTROINTESTINAL: No diarrhea, no nausea, no vomiting, no abdominal pain. NEUROLOGICAL: No headaches, no weakness, no numbness. HEMATOLOGICAL: Denies any bleeding or petechiae. GENITOURINARY: Denies any burning micturition, frequency, or urgency. MUSCULOSKELETAL/RHEUMATOLOGICAL: Denies any joint pain, swelling, or any muscle pain. ENDOCRINE: Denies any polyuria or polydipsia. The rest of the 14-point review of systems is negative. Past Medical History Past Medical History: Asthma, Hyperlipidemia Additional Past Medical History / Comment(s): sinus and allergy issues. History of Any Multi-Drug Resistant Organisms: None Reported Past Surgical History: No Surgical Hx Reported Additional Past Surgical History / Comment(s): Jul 2023 sinus sx. Past Anesthesia/Blood Transfusion Reactions: No Reported Reaction Additional Past Anesthesia/Blood Transfusion Reaction / Comment(s): No prior blood transfusion. Past Psychological History: No Psychological Hx Reported Smoking Status: Former smoker Past Alcohol Use History: None Reported, Rare Past Drug Use History: None Reported - Past Family History Mother Family Medical History: No Reported History Father Family Medical History: AFIB, Diabetes Mellitus Medications and Allergies Home Medications Medication Instructions Recorded Confirmed Type Montelukast [Singulair] 10 mg PO HS 07/25/23 11/02/24 History Albuterol Inhaler [Ventolin Hfa 2 puff INHALATION RT-Q4H PRN 03/21/24 11/02/24 History Inhaler] Albuterol Nebulized [Ventolin 2.5 mg INHALATION RT-DAILY 03/21/24 11/02/24 History Nebulized] Fluticasone/Umeclidin/Vilanter 1 puff INHALATION RT-DAILY 03/21/24 11/02/24 History [Trelegy Ellipta 200-62.5-25] Rosuvastatin Calcium [Crestor] 5 mg PO DAILY 03/21/24 11/02/24 History Albuterol Nebulized [Ventolin 2.5 mg INHALATION RT-BID PRN 11/02/24 11/02/24 History Nebulized] Benralizumab [Fasenra Pen] 30 mg SQ Q56D 11/02/24 11/02/24 History metFORMIN HCL [Glucophage] 500 mg PO BID 11/02/24 11/02/24 History predniSONE [Deltasone] 20 mg PO DAILY 11/02/24 11/02/24 History Allergies Allergy/AdvReac Type Severity Reaction Status Date / Time Penicillins Allergy Rash/Hives Verified 11/02/24 13:38 Physical Exam Vitals: Vital Signs Temp Pulse Pulse Resp BP BP Pulse Ox 11/03/24 09:31 110 H 11/03/24 09:20 108 H 93 L 11/03/24 08:16 97.7 F 104 H 16 161/87 94 L 11/03/24 07:45 109 H 17 11/03/24 02:40 98.2 F 109 H 17 143/78 92 L 11/02/24 21:23 97.7 F 107 H 145/76 94 L 11/02/24 20:30 111 H 18 125/72 97 11/02/24 20:18 105 H 11/02/24 20:10 94 11/02/24 18:36 98 18 144/85 97 11/02/24 17:21 98.9 F 106 H 20 117/79 97 11/02/24 17:04 109 H 20 11/02/24 16:56 95 11/02/24 16:55 105 H 20 11/02/24 15:03 100.3 F H 121 H 22 135/64 94 L 11/02/24 14:15 134 H 20 135/69 92 L 11/02/24 14:12 128 H 22 11/02/24 14:04 124 H 22 11/02/24 13:12 102.5 F H 130 H 28 H 114/66 88 L Intake and Output 11/02/24 11/03/24 11/03/24 22:59 06:59 14:59 Other: Voiding Method Toilet Toilet # Voids 3 Weight 104.326 kg General appearance: alert Head exam: Present: normocephalic Eye exam: Present: normal appearance Neck exam: Present: normal inspection Respiratory exam: Present: respiratory distress, wheezes, decreased breath sounds Cardiovascular Exam: Present: tachycardia GI/Abdominal exam: Present: soft. Absent: tenderness Extremities exam: Present: normal inspection. Absent: pedal edema, calf tenderness Neurological exam: Present: alert Psychiatric exam: Present: normal affect, normal mood Skin exam: Present: normal color Results CBC & Chem 7: 11/02/24 13:37 11/02/24 13:37 Labs: Abnormal Lab Results - Last 24 Hours (Table) 11/02/24 11/02/24 11/02/24 Range/Units 13:37 13:37 13:37 Neutrophils # 9.2 H (1.3-7.7) k/uL Lymphocytes # 0.2 L (1.0-4.8) k/uL Sodium 135 L (137-145) mmol/L BUN 24 H (9-20) mg/dL Glucose 118 H (74-99) mg/dL POC Glucose (mg/dL) (70-110) mg/dL Total Bilirubin 1.7 H (0.2-1.3) mg/dL Influenza Type A (PCR) Detected A (Not Detectd) 11/02/24 11/02/24 11/03/24 Range/Units 21:21 22:55 06:26 Neutrophils # (1.3-7.7) k/uL Lymphocytes # (1.0-4.8) k/uL Sodium (137-145) mmol/L BUN (9-20) mg/dL Glucose (74-99) mg/dL POC Glucose (mg/dL) 259 H 214 H 143 H (70-110) mg/dL Total Bilirubin (0.2-1.3) mg/dL Influenza Type A (PCR) (Not Detectd) Thrombosis Risk Factor Assmnt - Choose All That Apply Any of the Below Risk Factors Present?: Yes Each Factor Represents 1 point: Age 41-60 years Other Risk Factors: No Thrombosis Risk Factor Assessment Total Risk Factor Score: 1 Thrombosis Risk Factor Assessment Level: Low Risk Assessment and Plan Assessment: 1. Acute hypoxic respiratory failure; likely related to acute exacerbation of asthma and influenza A infection -- Patient is currently saturating above 90% on 3 L O2 per nasal cannula -Plan to titrate or wean as able 2. Acute exacerbation persistent chronic bronchial asthma -Patient takes Trelegy, Singulair, albuterol, and Fasenra at home -- Currently on IV Solu-Medrol 60 mg IV every 6 hours; Singulair 10 mg daily; patient has been placed on DuoNeb nebulizer treatments, Symbicort and Spiriva 3. Acute influenza A infection; received Tamiflu 75 mg p.o. twice daily in ED; we will continue to complete a 5-day course 4. Tachycardia -EKG completed in ED reveals sinus tachycardia with nonspecific ST and T wave changes; likely related to acute hypoxic respiratory failure -- Will monitor EKG and trend troponin 5. Hyperlipidemia; 10 mg p.o. nightly 6. Diabetes mellitus with long-term insulin use; patient uses Levemir 15 units SQ nightly; metformin 500 mg twice daily; we will continue with the home dose and monitor Accu-Cheks before every meal and at bedtime with insulin sliding scale DVT prophylaxis; SCDs/subcu heparin CODE STATUS; code
[2024-11-03 12:04] LABS: Glucose,Whole Blood 152 mg/dL (70-110)
--- NOTE | 2024-11-03 13:01 | P.PN ---
Subjective Progress Note Date: 11/03/24 This is a very pleasant 54-year-old male patient with a known history of hyperlipidemia, diabetes mellitus, former smoker. He also has eosinophilic asthma and follows with Dr. Garcia in our office for the same. He is on Fasenra, Trelegy, Singulair and albuterol. He came to the emergency room today after a rather sudden onset yesterday of shortness of breath, fever and cough. No exposures to sick people. Chest x-ray reveals no acute pulmonary process. White count 10.3. Hemoglobin 14.6. Platelets 153. Sodium 135. Potassium 3.9. Bicarb 26. BUN 24. Creatinine 0.71. Glucose 118. Viral screen positive for influenza A. He is seen today in consultation in the emergency department. He is currently sitting up on a stretcher. He is awake and alert. He is quite short of breath. He is hypoxemic requiring oxygen at 3 L/min per nasal cannula. He is tachycardic. Temperature 100.3. The patient is seen today November 03, 2024 in follow-up on the regular medical floor. He is currently sitting up in bed. Awake and alert in no acute distress. Feeling about the same today as compared to yesterday. He is maintaining O2 saturations in the 90s on 2 L/min per nasal cannula. He remains on lactated Ringer's at 130 mL/h. Continued on DuoNeb inhalations, Symbicort, Spiriva, Solu-Medrol. He remains on Tamiflu for influenza A infection. He is currently afebrile. Slightly tachycardic. Blood pressure stable. Glucose 152. Objective - Vital Signs Vital signs: Vital Signs Temp 97.7 F 11/03/24 08:16 Pulse 104 H 11/03/24 12:47 Resp 16 11/03/24 08:16 BP 161/87 11/03/24 08:16 Pulse Ox 93 L 11/03/24 09:20 FiO2 Intake & Output 11/02/24 11/03/24 11/03/24 18:59 06:59 18:59 Weight 104.326 kg 104.326 kg Other: Voiding Method Toilet Toilet # Voids 3 - Exam GENERAL EXAM: Alert, 54-year-old male, sitting up in bed, on 3 L nasal cannula, comfortable in no apparent distress. HEAD: Normocephalic. EYES: Normal reaction of pupils, equal size. NOSE: Clear with pink turbinates. THROAT: No erythema or exudates. NECK: No masses, no JVD. CHEST: No chest wall deformity. LUNGS: Equal air entry with bilateral end expiratory wheeze. CVS: S1 and S2 normal with no audible murmur, regular rhythm. ABDOMEN: No hepatosplenomegaly, normal bowel sounds, no guarding or rigidity. SPINE: No scoliosis or deformity SKIN: No rashes CENTRAL NERVOUS SYSTEM: No focal deficits, tone is normal in all 4 extremities. EXTREMITIES: There is no peripheral edema. No clubbing, no cyanosis. Peripheral pulses are intact. - Labs CBC & Chem 7: 11/02/24 13:37 11/02/24 13:37 Labs: Abnormal Lab Results - Last 24 Hours (Table) 11/02/24 11/02/24 11/02/24 Range/Units 13:37 13:37 13:37 Neutrophils # 9.2 H (1.3-7.7) k/uL Lymphocytes # 0.2 L (1.0-4.8) k/uL Sodium 135 L (137-145) mmol/L BUN 24 H (9-20) mg/dL Glucose 118 H (74-99) mg/dL POC Glucose (mg/dL) (70-110) mg/dL Total Bilirubin 1.7 H (0.2-1.3) mg/dL Influenza Type A (PCR) Detected A (Not Detectd) 11/02/24 11/02/24 11/03/24 Range/Units 21:21 22:55 06:26 Neutrophils # (1.3-7.7) k/uL Lymphocytes # (1.0-4.8) k/uL Sodium (137-145) mmol/L BUN (9-20) mg/dL Glucose (74-99) mg/dL POC Glucose (mg/dL) 259 H 214 H 143 H (70-110) mg/dL Total Bilirubin (0.2-1.3) mg/dL Influenza Type A (PCR) (Not Detectd) 11/03/24 Range/Units 12:03 Neutrophils # (1.3-7.7) k/uL Lymphocytes # (1.0-4.8) k/uL Sodium (137-145) mmol/L BUN (9-20) mg/dL Glucose (74-99) mg/dL POC Glucose (mg/dL) 152 H (70-110) mg/dL Total Bilirubin (0.2-1.3) mg/dL Influenza Type A (PCR) (Not Detectd) Assessment and Plan Assessment: Acute hypoxemic respiratory failure secondary to an acute exacerbation of moderate persistent chronic bronchial asthma complicated by influenza A Acute influenza A infection Acute asthma exacerbation secondary to above Febrile illness secondary to above, recovered Tachycardia secondary to above History of eosinophilic granulomatosis with polyangiitis (EGPA) asthma maintained on Fasenra, Trelegy, Singulair and albuterol in the outpatient setting Diabetes mellitus Former smoker Hyperlipidemia Plan: The patient was seen and evaluated Labs and medications reviewed Continue DuoNeb inhalations, Symbicort, Spiriva Continue Solu-Medrol, Singulair Continue Tamiflu Titrate the FiO2 as tolerated We will continue to follow I have personally seen and examined the patient, performed the documentation and the assessment and plan as written. Number of minutes spent on the visit: 20 Dictation was produced using [employer] dictation software. Please excuse any grammatical, word or spelling errors.
[2024-11-03] MEDS: TIOTROPIUM 2.5 MCG INHALER INHALATION SCH (13:48)
[2024-11-03 16:57] LABS: Glucose,Whole Blood 173 mg/dL (70-110)
--- NOTE | 2024-11-03 19:44 | P.PN ---
Subjective Progress Note Date: 11/03/24 54-year-old male, history of severe bronchial asthma, hypertension, hyperlipidemia, diabetes, present to the emergency department with concerns with difficulty breathing. Onset of symptoms was yesterday. 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 Patient has had fever at home. No Tylenol or Motrin today. Patient does have some discomfort of his upper back and chest however states he does get this when he gets ill. Patient does have dry nonproductive cough. Patient feels short of breath and wheezy. Chest x-ray reveals no acute pulmonary process. EKG reveals sinus tachycardia with nonspecific ST and T wave changes Blood work completed in ED reveals White count 10.3. Hemoglobin 14.6. Platelets 153. Sodium 135. Potassium 3.9. Bicarb 26. BUN 24. Creatinine 0.71. Glucose 118. Viral screen positive for influenza A. Objective - Vital Signs Vital signs: Vital Signs Temp 97.7 F 11/03/24 08:16 Pulse 104 H 11/03/24 12:47 Resp 16 11/03/24 08:16 BP 161/87 11/03/24 08:16 Pulse Ox 93 L 11/03/24 09:20 FiO2 Intake & Output 11/02/24 11/03/24 11/03/24 18:59 06:59 18:59 Weight 104.326 kg 104.326 kg Other: Voiding Method Toilet Toilet # Voids 3 - Exam General appearance: alert Head exam: Present: normocephalic Eye exam: Present: normal appearance Neck exam: Present: normal inspection Respiratory exam: Present: respiratory distress, wheezes, decreased breath sounds Cardiovascular Exam: Present: tachycardia GI/Abdominal exam: Present: soft. Absent: tenderness Extremities exam: Present: normal inspection. Absent: pedal edema, calf tenderness Neurological exam: Present: alert Psychiatric exam: Present: normal affect, normal mood Skin exam: Present: normal color - Labs CBC & Chem 7: 11/02/24 13:37 11/02/24 13:37 Labs: Abnormal Lab Results - Last 24 Hours (Table) 11/02/24 11/02/24 11/02/24 Range/Units 13:37 21:21 22:55 POC Glucose (mg/dL) 259 H 214 H (70-110) mg/dL Influenza Type A (PCR) Detected A (Not Detectd) 11/03/24 11/03/24 Range/Units 06:26 12:03 POC Glucose (mg/dL) 143 H 152 H (70-110) mg/dL Influenza Type A (PCR) (Not Detectd) Assessment and Plan Assessment: 1. Acute hypoxic respiratory failure; likely related to acute exacerbation of asthma and influenza A infection -- Patient is currently saturating above 90% on 3 L O2 per nasal cannula -Plan to titrate or wean as able 2. Acute exacerbation persistent chronic bronchial asthma -Patient takes Trelegy, Singulair, albuterol, and Fasenra at home -- Currently on IV Solu-Medrol 60 mg IV every 6 hours; Singulair 10 mg daily; patient has been placed on DuoNeb nebulizer treatments, Symbicort and Spiriva 3. Acute influenza A infection; received Tamiflu 75 mg p.o. twice daily in ED; we will continue to complete a 5-day course 4. Tachycardia -EKG completed in ED reveals sinus tachycardia with nonspecific ST and T wave changes; likely related to acute hypoxic respiratory failure -- Will monitor EKG and trend troponin 5. Hyperlipidemia; 10 mg p.o. nightly 6. Diabetes mellitus with long-term insulin use; patient uses Levemir 15 units SQ nightly; metformin 500 mg twice daily; we will continue with the home dose and monitor Accu-Cheks before every meal and at bedtime with insulin sliding scale DVT prophylaxis; SCDs/subcu heparin CODE STATUS; code
[2024-11-03 21:08] LABS: Glucose,Whole Blood 152 mg/dL (70-110)
[2024-11-03 23:15] LABS: Glucose,Whole Blood 145 mg/dL (70-110)
[2024-11-04 06:51] LABS: Glucose,Whole Blood 133 mg/dL (70-110)
[2024-11-04 10:10] LABS: Chloride 99 mmol/L (96-109); Glucose 139 mg/dL (70-110); Potassium 4.5 mmol/L (3.5-5.5); Sodium 140 mmol/L (135-145)
[2024-11-04 10:11] LABS: Calcium 9.1 mg/dL (8.7-10.3); Carbon Dioxide 28.6 mmol/L (21.6-31.8)
[2024-11-04 10:33] LABS: Basophils # (A) 0.02 X 10*3/uL (0.00-0.10); Basophils % (A) 0.1 %; Eosinophils # (A) 0 X 10*3/uL (0.04-0.35); Eosinophils % (A) 0 %; HGB 14.6 g/dL (13.0-17.0); Lymphocytes # (A) 0.27 X 10*3/uL (0.90-5.00); Lymphocytes % (A) 1.7 %; MCHC 32.4 g/dL (32.0-37.0); MCV 95.5 FL (80.0-97.0); Monocytes # (A) 0.71 X 10*3/uL (0.20-1.00); Monocytes % (A) 4.5 %; NRBC Per 100 WBC 0 X 10*3/uL (0.00-0.01); Neutrophils # (A) 14.57 X 10*3/uL (1.80-7.70); Platelet Count 173 X 10*3/uL (140-440); RBC 4.71 X 10*6/uL (4.40-5.60); RDW 12.3 % (11.5-14.5); WBC 15.68 X 10*3/uL (4.50-10.00)
[2024-11-04 11:35] LABS: Glucose,Whole Blood 126 mg/dL (70-110)
--- NOTE | 2024-11-04 12:20 | P.PN ---
Subjective Progress Note Date: 11/04/24 This is a very pleasant 54-year-old male patient with a known history of hyperlipidemia, diabetes mellitus, former smoker. He also has eosinophilic asthma and follows with Dr. Garcia in our office for the same. He is on Fasenra, Trelegy, Singulair and albuterol. He came to the emergency room today after a rather sudden onset yesterday of shortness of breath, fever and cough. No exposures to sick people. Chest x-ray reveals no acute pulmonary process. White count 10.3. Hemoglobin 14.6. Platelets 153. Sodium 135. Potassium 3.9. Bicarb 26. BUN 24. Creatinine 0.71. Glucose 118. Viral screen positive for influenza A. He is seen today in consultation in the emergency department. He is currently sitting up on a stretcher. He is awake and alert. He is quite short of breath. He is hypoxemic requiring oxygen at 3 L/min per nasal cannula. He is tachycardic. Temperature 100.3. The patient is seen today November 03, 2024 in follow-up on the regular medical floor. He is currently sitting up in bed. Awake and alert in no acute distress. Feeling about the same today as compared to yesterday. He is maintaining O2 saturations in the 90s on 2 L/min per nasal cannula. He remains on lactated Ringer's at 130 mL/h. Continued on DuoNeb inhalations, Symbicort, Spiriva, Solu-Medrol. He remains on Tamiflu for influenza A infection. He is currently afebrile. Slightly tachycardic. Blood pressure stable. Glucose 152. The patient is seen today November 04, 2024 in follow-up on the regular medical floor. He is awake and alert in no acute distress. Feeling a bit better today compared to yesterday. Not quite back to his baseline. Resting in bed. Maintaining O2 saturations in the 90s on 2 L/min per nasal cannula. He has lactated Ringer's at KVO. He is continued on DuoNeb inhalations, Symbicort, Solu-Medrol, Singulair. Continued on Tamiflu. Continued on Levemir, NovoLog sliding scale. Blood culture revealing no growth to date. White count 15.6. Hemoglobin 14.6. Platelets 173. Sodium 140. Potassium 4.5. Bicarb 29. BUN 18. Creatinine 0.8. Glucose 139. Objective - Vital Signs Vital signs: Vital Signs Temp 97.8 F 11/04/24 08:07 Pulse 90 11/04/24 12:09 Resp 16 11/04/24 08:07 BP 135/84 11/04/24 08:07 Pulse Ox 95 11/04/24 08:07 FiO2 Intake & Output 11/03/24 11/04/24 11/04/24 18:59 06:59 18:59 Intake Total 1400 Balance 1400 Intake: Oral 1400 Other: Voiding Method Toilet Toilet Toilet # Voids 3 3 3 - Exam GENERAL EXAM: Alert, 54-year-old male, on 3 L nasal cannula, comfortable in no apparent distress. HEAD: Normocephalic. EYES: Normal reaction of pupils, equal size. NOSE: Clear with pink turbinates. THROAT: No erythema or exudates. NECK: No masses, no JVD. CHEST: No chest wall deformity. LUNGS: Equal air entry with bilateral end expiratory wheeze. CVS: S1 and S2 normal with no audible murmur, regular rhythm. ABDOMEN: No hepatosplenomegaly, normal bowel sounds, no guarding or rigidity. SPINE: No scoliosis or deformity SKIN: No rashes CENTRAL NERVOUS SYSTEM: No focal deficits, tone is normal in all 4 extremities. EXTREMITIES: There is no peripheral edema. No clubbing, no cyanosis. Peripheral pulses are intact. - Labs CBC & Chem 7: 11/04/24 02:51 11/04/24 02:51 Labs: Abnormal Lab Results - Last 24 Hours (Table) 11/03/24 11/03/24 11/03/24 Range/Units 16:55 21:01 23:14 WBC (4.50-10.00) X 10*3/uL Immature Gran # (0.00-0.04) X 10*3/uL Neutrophils # (1.80-7.70) X 10*3/uL Lymphocytes # (0.90-5.00) X 10*3/uL Eosinophils # (0.04-0.35) X 10*3/uL Anion Gap (4.00-12.00) mmol/L BUN/Creatinine Ratio (12.00-20.00) Ratio Glucose (70-110) mg/dL POC Glucose (mg/dL) 173 H 152 H 145 H (70-110) mg/dL 11/04/24 11/04/24 11/04/24 Range/Units 02:51 02:51 06:49 WBC 15.68 H (4.50-10.00) X 10*3/uL Immature Gran # 0.11 H (0.00-0.04) X 10*3/uL Neutrophils # 14.57 H (1.80-7.70) X 10*3/uL Lymphocytes # 0.27 L (0.90-5.00) X 10*3/uL Eosinophils # 0 L (0.04-0.35) X 10*3/uL Anion Gap 12.40 H (4.00-12.00) mmol/L BUN/Creatinine Ratio 22.50 H (12.00-20.00) Ratio Glucose 139 H (70-110) mg/dL POC Glucose (mg/dL) 133 H (70-110) mg/dL 11/04/24 Range/Units 11:33 WBC (4.50-10.00) X 10*3/uL Immature Gran # (0.00-0.04) X 10*3/uL Neutrophils # (1.80-7.70) X 10*3/uL Lymphocytes # (0.90-5.00) X 10*3/uL Eosinophils # (0.04-0.35) X 10*3/uL Anion Gap (4.00-12.00) mmol/L BUN/Creatinine Ratio (12.00-20.00) Ratio Glucose (70-110) mg/dL POC Glucose (mg/dL) 126 H (70-110) mg/dL Microbiology - Last 24 Hours (Table) 11/02/24 13:51 Blood Culture - Preliminary Blood Assessment and Plan Assessment: Acute hypoxemic respiratory failure secondary to an acute exacerbation of moderate persistent chronic bronchial asthma complicated by influenza A Acute influenza A infection Acute asthma exacerbation secondary to above Febrile illness secondary to above, recovered Tachycardia secondary to above, recovered History of eosinophilic granulomatosis with polyangiitis (EGPA) asthma maintained on Fasenra, Trelegy, Singulair and albuterol in the outpatient setting Diabetes mellitus Former smoker Hyperlipidemia Plan: The patient was seen and evaluated Labs and medications reviewed Continue DuoNeb inhalations, Symbicort Continue Solu-Medrol, Singulair Continue Tamiflu Titrate the FiO2 as tolerated Probable discharge in the a.m. This patient was seen independently by the pulmonary nurse practitioner addressing pulmonary issues 52 minutes was spent with this patient including the interview, examination, the review of pertinent labs, imaging medications and other providers notes. The diagnosis, treatment plan and prognosis was discussed with the patient as well. I also spoke with his nurse regarding the plan of care today. Dictation was produced using [employer] dictation software. Please excuse any grammatical, word or spelling errors.
[2024-11-04 16:55] LABS: Glucose,Whole Blood 179 mg/dL (70-110)
--- NOTE | 2024-11-04 17:05 | P.PN ---
Subjective Progress Note Date: 11/04/24 54-year-old male, history of severe bronchial asthma, hypertension, hyperlipidemia, diabetes, present to the emergency department with concerns with difficulty breathing. Onset of symptoms was yesterday. 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 Patient has had fever at home. No Tylenol or Motrin today. Patient does have some discomfort of his upper back and chest however states he does get this when he gets ill. Patient does have dry nonproductive cough. Patient feels short of breath and wheezy. Chest x-ray reveals no acute pulmonary process. EKG reveals sinus tachycardia with nonspecific ST and T wave changes Blood work completed in ED reveals White count 10.3. Hemoglobin 14.6. Platelets 153. Sodium 135. Potassium 3.9. Bicarb 26. BUN 24. Creatinine 0.71. Glucose 118. Viral screen positive for influenza A. 11/04/2024 Patient is seen and evaluated in follow-up on the regular medical floor. He is awake and alert in no acute distress. Feeling a bit better today compared to yesterday. Not quite back to his baseline. Resting in bed. -Vital signs are reviewed and stable; maintaining O2 saturations in the 90s on 2 L/min per nasal cannula. He has lactated Ringer's at [facility]. -- Blood culture revealing no growth to date. White count 15.6. Hemoglobin 14.6. Platelets 173. Sodium 140. Potassium 4.5. Bicarb 29. BUN 18. Creatinine 0.8. Glucose 139. He is continued on DuoNeb inhalations, Symbicort, Solu-Medrol, Singulair. Continued on Tamiflu. Continued on Levemir, NovoLog sliding scale. -- Patient continues to make progress; pulmonary service on board and recommending to continue with IV Solu-Medrol and Tamiflu -Possible discharge in next 24 hours if remains stable Objective - Vital Signs Vital signs: Vital Signs Temp 97.8 F 11/04/24 08:07 Pulse 90 11/04/24 08:21 Resp 16 11/04/24 08:07 BP 135/84 11/04/24 08:07 Pulse Ox 95 11/04/24 08:07 FiO2 Intake & Output 11/03/24 11/04/24 11/04/24 18:59 06:59 18:59 Intake Total 1400 Balance 1400 Intake: Oral 1400 Other: Voiding Method Toilet Toilet Toilet # Voids 3 3 3 - Exam General appearance: alert Head exam: Present: normocephalic Eye exam: Present: normal appearance Neck exam: Present: normal inspection Respiratory exam: Present: respiratory distress, wheezes, decreased breath sounds Cardiovascular Exam: Present: tachycardia GI/Abdominal exam: Present: soft. Absent: tenderness Extremities exam: Present: normal inspection. Absent: pedal edema, calf tenderness Neurological exam: Present: alert Psychiatric exam: Present: normal affect, normal mood Skin exam: Present: normal color - Labs CBC & Chem 7: 11/04/24 02:51 11/04/24 02:51 Labs: Abnormal Lab Results - Last 24 Hours (Table) 11/03/24 11/03/24 11/03/24 Range/Units 12:03 16:55 21:01 WBC (4.50-10.00) X 10*3/uL Immature Gran # (0.00-0.04) X 10*3/uL Neutrophils # (1.80-7.70) X 10*3/uL Lymphocytes # (0.90-5.00) X 10*3/uL Eosinophils # (0.04-0.35) X 10*3/uL Anion Gap (4.00-12.00) mmol/L BUN/Creatinine Ratio (12.00-20.00) Ratio Glucose (70-110) mg/dL POC Glucose (mg/dL) 152 H 173 H 152 H (70-110) mg/dL 11/03/24 11/04/24 11/04/24 Range/Units 23:14 02:51 02:51 WBC 15.68 H (4.50-10.00) X 10*3/uL Immature Gran # 0.11 H (0.00-0.04) X 10*3/uL Neutrophils # 14.57 H (1.80-7.70) X 10*3/uL Lymphocytes # 0.27 L (0.90-5.00) X 10*3/uL Eosinophils # 0 L (0.04-0.35) X 10*3/uL Anion Gap 12.40 H (4.00-12.00) mmol/L BUN/Creatinine Ratio 22.50 H (12.00-20.00) Ratio Glucose 139 H (70-110) mg/dL POC Glucose (mg/dL) 145 H (70-110) mg/dL 11/04/24 11/04/24 Range/Units 06:49 11:33 WBC (4.50-10.00) X 10*3/uL Immature Gran # (0.00-0.04) X 10*3/uL Neutrophils # (1.80-7.70) X 10*3/uL Lymphocytes # (0.90-5.00) X 10*3/uL Eosinophils # (0.04-0.35) X 10*3/uL Anion Gap (4.00-12.00) mmol/L BUN/Creatinine Ratio (12.00-20.00) Ratio Glucose (70-110) mg/dL POC Glucose (mg/dL) 133 H 126 H (70-110) mg/dL Microbiology - Last 24 Hours (Table) 11/02/24 13:51 Blood Culture - Preliminary Blood Assessment and Plan Assessment: 1. Acute hypoxic respiratory failure; likely related to acute exacerbation of asthma and influenza A infection -- Patient is currently saturating above 90% on 3 L O2 per nasal cannula -Plan to titrate or wean as able 2. Acute exacerbation persistent chronic bronchial asthma -Patient takes Trelegy, Singulair, albuterol, and Fasenra at home -- Currently on IV Solu-Medrol 60 mg IV every 6 hours; Singulair 10 mg daily; patient has been placed on DuoNeb nebulizer treatments, Symbicort and Spiriva 3. Acute influenza A infection; received Tamiflu 75 mg p.o. twice daily in ED; we will continue to complete a 5-day course 4. Tachycardia -EKG completed in ED reveals sinus tachycardia with nonspecific ST and T wave changes; likely related to acute hypoxic respiratory failure -- Will monitor EKG and trend troponin 5. Hyperlipidemia; 10 mg p.o. nightly 6. Diabetes mellitus with long-term insulin use; patient uses Levemir 15 units SQ nightly; metformin 500 mg twice daily; we will continue with the home dose and monitor Accu-Cheks before every meal and at bedtime with insulin sliding scale DVT prophylaxis; SCDs/subcu heparin CODE STATUS; code
[2024-11-04 20:55] LABS: Glucose,Whole Blood 140 mg/dL (70-110)
[2024-11-05 06:04] LABS: Glucose,Whole Blood 121 mg/dL (70-110)
[2024-11-05 08:48] LABS: BUN/Creat Ratio 28.25 Ratio (12.00-20.00); Blood Urea Nitrogen 22.6 mg/dL (9.0-27.0); Calcium 9.2 mg/dL (8.7-10.3); Carbon Dioxide 27.8 mmol/L (21.6-31.8); Chloride 100 mmol/L (96-109); Glucose 140 mg/dL (70-110); Potassium 4.4 mmol/L (3.5-5.5); Sodium 141 mmol/L (135-145)
[2024-11-05 08:59] LABS: Basophils # (A) 0.01 X 10*3/uL (0.00-0.10); Basophils % (A) 0.1 %; Eosinophils # (A) 0 X 10*3/uL (0.04-0.35); Eosinophils % (A) 0 %; HCT 45.9 % (39.6-50.0); HGB 15.1 g/dL (13.0-17.0); Lymphocytes # (A) 0.34 X 10*3/uL (0.90-5.00); Lymphocytes % (A) 2.2 %; MCH 31.4 pg (27.0-32.0); MCHC 32.9 g/dL (32.0-37.0); MCV 95.4 FL (80.0-97.0); Monocytes % (A) 5.1 %; NRBC Per 100 WBC 0 X 10*3/uL (0.00-0.01); Neutrophils # (A) 14.43 X 10*3/uL (1.80-7.70); Neutrophils % (A) 92.2 %; Platelet Count 184 X 10*3/uL (140-440); RBC 4.81 X 10*6/uL (4.40-5.60); RDW 12.5 % (11.5-14.5); WBC 15.65 X 10*3/uL (4.50-10.00)
[2024-11-05 10:46] LABS: Glucose,Whole Blood 145 mg/dL (70-110)
[2024-11-05 16:41] LABS: Glucose,Whole Blood 134 mg/dL (70-110)
--- NOTE | 2024-11-05 18:49 | P.PN ---
Subjective Progress Note Date: 11/05/24 54-year-old male, history of severe bronchial asthma, hypertension, hyperlipidemia, diabetes, present to the emergency department with concerns with difficulty breathing. Onset of symptoms was yesterday. 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 Patient has had fever at home. No Tylenol or Motrin today. Patient does have some discomfort of his upper back and chest however states he does get this when he gets ill. Patient does have dry nonproductive cough. Patient feels short of breath and wheezy. Chest x-ray reveals no acute pulmonary process. EKG reveals sinus tachycardia with nonspecific ST and T wave changes Blood work completed in ED reveals White count 10.3. Hemoglobin 14.6. Platelets 153. Sodium 135. Potassium 3.9. Bicarb 26. BUN 24. Creatinine 0.71. Glucose 118. Viral screen positive for influenza A. 11/04/2024 Patient is seen and evaluated in follow-up on the regular medical floor. He is awake and alert in no acute distress. Feeling a bit better today compared to yesterday. Not quite back to his baseline. Resting in bed. -Vital signs are reviewed and stable; maintaining O2 saturations in the 90s on 2 L/min per nasal cannula. He has lactated Ringer's at [facility]. -- Blood culture revealing no growth to date. White count 15.6. Hemoglobin 14.6. Platelets 173. Sodium 140. Potassium 4.5. Bicarb 29. BUN 18. Creatinine 0.8. Glucose 139. He is continued on DuoNeb inhalations, Symbicort, Solu-Medrol, Singulair. Continued on Tamiflu. Continued on Levemir, NovoLog sliding scale. -- Patient continues to make progress; pulmonary service on board and recommending to continue with IV Solu-Medrol and Tamiflu -Possible discharge in next 24 hours if remains stable 11/05/2024 Patient is evaluated today in follow up on the medical floor. Patient is up ambulating around the room without difficulty. Not reporting significant shortness of breath. Patient remains on 2L of oxygen via nasal cannula. His oxygen saturation 93% at rest and up to 85% while ambulating. He continues on IV solumedrol, oral tamiflu. Patient having trouble expectorating and will be started on mucinex. Continues on symbicort. Pulmonary following. Not quite ready for discharge. Review of Systems Constitutional: Denied any fatigue denied any fever. Cardio vascular: denied any chest pain, palpitations Gastrointestinal: denied any nausea, vomiting, diarrhea Pulmonary: Denied any shortness of breath reports nonproductive cough Neurologic denied any new focal deficits All inpatient medications were reviewed and appropriate changes in these medications as dictated in the interval history and assessment and plan. PHYSICAL EXAMINATION: GENERAL: The patient is alert and oriented x3, not in any acute distress. Well developed, well nourished. HEENT: Pupils are round and equally reacting to light. EOMI. No scleral icterus. No conjunctival pallor. Normocephalic, atraumatic. No pharyngeal erythema. No thyromegaly. CARDIOVASCULAR: S1 and S2 present. No murmurs, rubs, or gallops. PULMONARY: Coarse scattered ronchi. No significant wheezing noted. ABDOMEN: Soft, nontender, nondistended, normoactive bowel sounds. No palpable organomegaly. MUSCULOSKELETAL: No joint swelling or deformity. EXTREMITIES: No cyanosis, clubbing, or pedal edema. NEUROLOGICAL: Gross neurological examination did not reveal any focal deficits. SKIN: No rashes. Assessment and Plan 1. Acute hypoxic respiratory failure; likely related to acute exacerbation of asthma and influenza A infection -- Patient is currently saturating above 90% on 3 L O2 per nasal cannula -Plan to titrate or wean as able -Did not pass home oxygen test today patient was down to 85% while on room air. 2. Acute exacerbation persistent chronic bronchial asthma -Patient takes Trelegy, Singulair, albuterol, and Fasenra at home -- Currently on IV Solu-Medrol 60 mg IV every 6 hours; Singulair 10 mg daily; patient has been placed on DuoNeb nebulizer treatments, Symbicort and Spiriva 3. Acute influenza A infection; received Tamiflu 75 mg p.o. twice daily in ED; we will continue to complete a 5-day course 4. Tachycardia -EKG completed in ED reveals sinus tachycardia with nonspecific ST and T wave changes; likely related to acute hypoxic respiratory failure -- Will monitor EKG and trend troponin 5. Hyperlipidemia; 10 mg p.o. nightly 6. Diabetes mellitus with long-term insulin use; patient uses Levemir 15 units SQ nightly; metformin 500 mg twice daily; we will continue with the home dose and monitor Accu-Cheks before every meal and at bedtime with insulin sliding scale DVT prophylaxis; SCDs/subcu heparin CODE STATUS; code The impression and plan of care has been dictated by Brook Stack Nurse Practitioner as directed. Dr. Lynn MD I have performed a history and physical examination and medical decision making of this patient, discussed the same with the dictator, and agree with the dictators assessment and plan as written, documented as a scribe. Based on total visit time, I have performed more than 50% of this visit. Objective - Vital Signs Vital signs: Vital Signs Temp 98.2 F 11/05/24 14:03 Pulse 76 11/05/24 16:46 Resp 16 11/05/24 14:03 BP 127/71 11/05/24 14:03 Pulse Ox 93 L 11/05/24 14:24 FiO2 Intake & Output 11/04/24 11/05/24 11/05/24 18:59 06:59 18:59 Other: Voiding Method Toilet Toilet Toilet # Voids 3 2 2 # Bowel Movements 0 - Labs CBC & Chem 7: 11/05/24 02:44 11/05/24 02:44 Labs: Abnormal Lab Results - Last 24 Hours (Table) 11/04/24 11/05/24 11/05/24 Range/Units 20:51 02:44 02:44 WBC 15.65 H (4.50-10.00) X 10*3/uL Immature Gran # 0.07 H (0.00-0.04) X 10*3/uL Neutrophils # 14.43 H (1.80-7.70) X 10*3/uL Lymphocytes # 0.34 L (0.90-5.00) X 10*3/uL Eosinophils # 0 L (0.04-0.35) X 10*3/uL Anion Gap 13.20 H (4.00-12.00) mmol/L BUN/Creatinine Ratio 28.25 H (12.00-20.00) Ratio Glucose 140 H (70-110) mg/dL POC Glucose (mg/dL) 140 H (70-110) mg/dL 11/05/24 11/05/24 11/05/24 Range/Units 06:03 10:44 16:39 WBC (4.50-10.00) X 10*3/uL Immature Gran # (0.00-0.04) X 10*3/uL Neutrophils # (1.80-7.70) X 10*3/uL Lymphocytes # (0.90-5.00) X 10*3/uL Eosinophils # (0.04-0.35) X 10*3/uL Anion Gap (4.00-12.00) mmol/L BUN/Creatinine Ratio (12.00-20.00) Ratio Glucose (70-110) mg/dL POC Glucose (mg/dL) 121 H 145 H 134 H (70-110) mg/dL Microbiology - Last 24 Hours (Table) 11/02/24 13:51 Blood Culture - Preliminary Blood Assessment and Plan Time with Patient: Less than 30
[2024-11-05 20:46] LABS: Glucose,Whole Blood 150 mg/dL (70-110)
--- NOTE | 2024-11-05 21:37 | P.PN ---
Subjective Progress Note Date: 11/05/24 This is a very pleasant 54-year-old male patient with a known history of hyperlipidemia, diabetes mellitus, former smoker. He also has eosinophilic asthma and follows with Dr. Garcia in our office for the same. He is on Fasenra, Trelegy, Singulair and albuterol. He came to the emergency room today after a rather sudden onset yesterday of shortness of breath, fever and cough. No exposures to sick people. Chest x-ray reveals no acute pulmonary process. White count 10.3. Hemoglobin 14.6. Platelets 153. Sodium 135. Potassium 3.9. Bicarb 26. BUN 24. Creatinine 0.71. Glucose 118. Viral screen positive for influenza A. He is seen today in consultation in the emergency department. He is currently sitting up on a stretcher. He is awake and alert. He is quite short of breath. He is hypoxemic requiring oxygen at 3 L/min per nasal cannula. He is tachycardic. Temperature 100.3. The patient is seen today November 03, 2024 in follow-up on the regular medical floor. He is currently sitting up in bed. Awake and alert in no acute distress. Feeling about the same today as compared to yesterday. He is maintaining O2 saturations in the 90s on 2 L/min per nasal cannula. He remains on lactated Ringer's at 130 mL/h. Continued on DuoNeb inhalations, Symbicort, Spiriva, Solu-Medrol. He remains on Tamiflu for influenza A infection. He is currently afebrile. Slightly tachycardic. Blood pressure stable. Glucose 152. The patient is seen today November 04, 2024 in follow-up on the regular medical floor. He is awake and alert in no acute distress. Feeling a bit better today compared to yesterday. Not quite back to his baseline. Resting in bed. Maintaining O2 saturations in the 90s on 2 L/min per nasal cannula. He has lactated Ringer's at [facility]. He is continued on DuoNeb inhalations, Symbicort, Solu-Medrol, Singulair. Continued on Tamiflu. Continued on Levemir, NovoLog sliding scale. Blood culture revealing no growth to date. White count 15.6. Hemoglobin 14.6. Platelets 173. Sodium 140. Potassium 4.5. Bicarb 29. BUN 18. Creatinine 0.8. Glucose 139. On 11/05/2024, the patient is being seen for a follow-up. The patient is doing better. Less short of breath compared to yesterday. Still oxygen dependent and he is currently on 2 L of oxygen by nasal cannula. Remains bronchospastic and wheezy. He is on Tamiflu. On IV Solu-Medrol. On DuoNeb nebulized treatments [id number] and Symbicort. Levemir insulin 15 units for blood sugar co ntrol and NovoLog/scale coverage. The patient remains on Glucophage. WBC count is at 15 with a hemoglobin 15 and a platelet count of 184. BUN is 22 with a creatinine 0.8 and a sodium levels at 141. No nausea. No vomiting. No diarrhea. No chest pain. Less tachycardic. Objective - Vital Signs Vital signs: Vital Signs Temp 98.2 F 11/05/24 14:03 Pulse 117 H 11/05/24 14:24 Resp 16 11/05/24 14:03 BP 127/71 11/05/24 14:03 Pulse Ox 93 L 11/05/24 14:24 FiO2 Intake & Output 11/04/24 11/05/24 11/05/24 18:59 06:59 18:59 Other: Voiding Method Toilet Toilet Toilet # Voids 3 2 - Exam GENERAL EXAM: Alert, 54-year-old male, on 2 L nasal cannula, comfortable in no apparent distress. HEAD: Normocephalic. EYES: Normal reaction of pupils, equal size. NOSE: Clear with pink turbinates. THROAT: No erythema or exudates. NECK: No masses, no JVD. CHEST: No chest wall deformity. LUNGS: Equal air entry with bilateral end expiratory wheeze. CVS: S1 and S2 normal with no audible murmur, regular rhythm. ABDOMEN: No hepatosplenomegaly, normal bowel sounds, no guarding or rigidity. SPINE: No scoliosis or deformity SKIN: No rashes CENTRAL NERVOUS SYSTEM: No focal deficits, tone is normal in all 4 extremities. EXTREMITIES: There is no peripheral edema. No clubbing, no cyanosis. Peripheral pulses are intact. - Labs CBC & Chem 7: 11/05/24 02:44 11/05/24 02:44 Labs: Abnormal Lab Results - Last 24 Hours (Table) 11/04/24 11/04/24 11/05/24 Range/Units 16:54 20:51 02:44 WBC 15.65 H (4.50-10.00) X 10*3/uL Immature Gran # 0.07 H (0.00-0.04) X 10*3/uL Neutrophils # 14.43 H (1.80-7.70) X 10*3/uL Lymphocytes # 0.34 L (0.90-5.00) X 10*3/uL Eosinophils # 0 L (0.04-0.35) X 10*3/uL Anion Gap (4.00-12.00) mmol/L BUN/Creatinine Ratio (12.00-20.00) Ratio Glucose (70-110) mg/dL POC Glucose (mg/dL) 179 H 140 H (70-110) mg/dL 11/05/24 11/05/24 11/05/24 Range/Units 02:44 06:03 10:44 WBC (4.50-10.00) X 10*3/uL Immature Gran # (0.00-0.04) X 10*3/uL Neutrophils # (1.80-7.70) X 10*3/uL Lymphocytes # (0.90-5.00) X 10*3/uL Eosinophils # (0.04-0.35) X 10*3/uL Anion Gap 13.20 H (4.00-12.00) mmol/L BUN/Creatinine Ratio 28.25 H (12.00-20.00) Ratio Glucose 140 H (70-110) mg/dL POC Glucose (mg/dL) 121 H 145 H (70-110) mg/dL Microbiology - Last 24 Hours (Table) 11/02/24 13:51 Blood Culture - Preliminary Blood Assessment and Plan Plan: Acute hypoxemic respiratory failure secondary to an acute exacerbation of moderate persistent chronic bronchial asthma complicated by influenza A, the patient remains on oxygen 2 L/min nasal cannula Acute influenza A infection Acute asthma exacerbation secondary to above Febrile illness secondary to above, recovered Tachycardia secondary to above, recovered History of eosinophilic granulomatosis with polyangiitis (EGPA) asthma maintained on Fasenra, Trelegy, Singulair and albuterol in the outpatient setting Diabetes mellitus Former smoker Hyperlipidemia Plan: Obtain follow-up chest x-ray for tomorrow Continue DuoNeb inhalations, Symbicort Continue Solu-Medrol, Singulair Continue Tamiflu For send on outpatient basis Titrate the FiO2 as tolerated Will continue to follow
[2024-11-05] MEDS: guaiFENesin 600 MG TABLET.ER PO SCH (21:50)
[2024-11-06 06:24] LABS: Glucose,Whole Blood 107 mg/dL (70-110)
--- NOTE | 2024-11-06 08:19 | XR ---
EXAMINATION TYPE: XR chest 1V DATE OF EXAM: 11/06/2024 6:50 AM COMPARISON: 11/02/2024 CLINICAL INDICATION: Male, 54 years old with history of Hypoxic respiratory failure/influenza, TECHNIQUE: XR chest 1V view(s) obtained. FINDINGS: The heart size is normal. The pulmonary vasculature is normal. The lungs are clear. IMPRESSION: 1. No acute pulmonary process. [facility], , 11/06/2024 8:17 AM
[2024-11-06 08:45] LABS: Basophils # (A) 0.01 X 10*3/uL (0.00-0.10); Basophils % (A) 0.1 %; Eosinophils # (A) 0 X 10*3/uL (0.04-0.35); Eosinophils % (A) 0 %; HGB 14.8 g/dL (13.0-17.0); Lymphocytes % (A) 3.2 %; MCH 31.1 pg (27.0-32.0); MCHC 32.9 g/dL (32.0-37.0); MCV 94.5 FL (80.0-97.0); Mean Platelet Volume 10.7 FL (9.5-12.2); Monocytes # (A) 0.73 X 10*3/uL (0.20-1.00); Monocytes % (A) 5.8 %; NRBC Per 100 WBC 0 X 10*3/uL (0.00-0.01); Neutrophils # (A) 11.38 X 10*3/uL (1.80-7.70); Neutrophils % (A) 90.6 %; Platelet Count 176 X 10*3/uL (140-440); RBC 4.76 X 10*6/uL (4.40-5.60); RDW 12.6 % (11.5-14.5); WBC 12.56 X 10*3/uL (4.50-10.00)
[2024-11-06 08:56] LABS: BUN/Creat Ratio 32.86 Ratio (12.00-20.00); Calcium 8.7 mg/dL (8.7-10.3); Carbon Dioxide 27.3 mmol/L (21.6-31.8); Chloride 97 mmol/L (96-109); Glucose 141 mg/dL (70-110); Potassium 4.5 mmol/L (3.5-5.5); Sodium 137 mmol/L (135-145)
[2024-11-06 10:23] LABS: Glucose,Whole Blood 135 mg/dL (70-110)
[2024-11-06 16:59] LABS: Glucose,Whole Blood 136 mg/dL (70-110)
--- NOTE | 2024-11-06 20:13 | P.PN ---
Subjective Progress Note Date: 11/06/24 This is a very pleasant 54-year-old male patient with a known history of hyperlipidemia, diabetes mellitus, former smoker. He also has eosinophilic asthma and follows with Dr. Garcia in our office for the same. He is on Fasenra, Trelegy, Singulair and albuterol. He came to the emergency room today after a rather sudden onset yesterday of shortness of breath, fever and cough. No exposures to sick people. Chest x-ray reveals no acute pulmonary process. White count 10.3. Hemoglobin 14.6. Platelets 153. Sodium 135. Potassium 3.9. Bicarb 26. BUN 24. Creatinine 0.71. Glucose 118. Viral screen positive for influenza A. He is seen today in consultation in the emergency department. He is currently sitting up on a stretcher. He is awake and alert. He is quite short of breath. He is hypoxemic requiring oxygen at 3 L/min per nasal cannula. He is tachycardic. Temperature 100.3. The patient is seen today November 03, 2024 in follow-up on the regular medical floor. He is currently sitting up in bed. Awake and alert in no acute distress. Feeling about the same today as compared to yesterday. He is maintaining O2 saturations in the 90s on 2 L/min per nasal cannula. He remains on lactated Ringer's at 130 mL/h. Continued on DuoNeb inhalations, Symbicort, Spiriva, Solu-Medrol. He remains on Tamiflu for influenza A infection. He is currently afebrile. Slightly tachycardic. Blood pressure stable. Glucose 152. The patient is seen today November 04, 2024 in follow-up on the regular medical floor. He is awake and alert in no acute distress. Feeling a bit better today compared to yesterday. Not quite back to his baseline. Resting in bed. Maintaining O2 saturations in the 90s on 2 L/min per nasal cannula. He has lactated Ringer's at [facility]. He is continued on DuoNeb inhalations, Symbicort, Solu-Medrol, Singulair. Continued on Tamiflu. Continued on Levemir, NovoLog sliding scale. Blood culture revealing no growth to date. White count 15.6. Hemoglobin 14.6. Platelets 173. Sodium 140. Potassium 4.5. Bicarb 29. BUN 18. Creatinine 0.8. Glucose 139. On 11/05/2024, the patient is being seen for a follow-up. The patient is doing better. Less short of breath compared to yesterday. Still oxygen dependent and he is currently on 2 L of oxygen by nasal cannula. Remains bronchospastic and wheezy. He is on Tamiflu. On IV Solu-Medrol. On DuoNeb nebulized treatments [id number] and Symbicort. Levemir insulin 15 units for blood sugar co ntrol and NovoLog/scale coverage. The patient remains on Glucophage. WBC count is at 15 with a hemoglobin 15 and a platelet count of 184. BUN is 22 with a creatinine 0.8 and a sodium levels at 141. No nausea. No vomiting. No diarrhea. No chest pain. Less tachycardic. On 11/06/2024, the patient is feeling better, less mucus passing and wheezy, oxygenation is improved and the patient is currently on room air oxygen with a pulse ox of 94%. Will continue same management. The patient remains on Tamiflu. Remains on Symbicort. Will continue IV Solu-Medrol for another 24 hours. Repeat chest x-ray from today shows no acute abnormalities. White cell count of 12.5 with a heme of 14.8 and a platelet count of 176. Electrolytes are all within normal limits. No new complaints. Objective - Vital Signs Vital signs: Vital Signs Temp 98.2 F 11/06/24 14:10 Pulse 105 H 11/06/24 14:10 Resp 16 11/06/24 14:10 BP 114/69 11/06/24 14:10 Pulse Ox 96 11/06/24 14:10 FiO2 Intake & Output 11/05/24 11/06/24 11/06/24 18:59 06:59 18:59 Other: Voiding Method Toilet Toilet # Voids 2 2 # Bowel Movements 0 - Exam GENERAL EXAM: Alert, 54-year-old male, on room air oxygen. HEAD: Normocephalic. EYES: Normal reaction of pupils, equal size. NOSE: Clear with pink turbinates. THROAT: No erythema or exudates. NECK: No masses, no JVD. CHEST: No chest wall deformity. LUNGS: Equal air entry with bilateral end expiratory wheeze. CVS: S1 and S2 normal with no audible murmur, regular rhythm. ABDOMEN: No hepatosplenomegaly, normal bowel sounds, no guarding or rigidity. SPINE: No scoliosis or deformity SKIN: No rashes CENTRAL NERVOUS SYSTEM: No focal deficits, tone is normal in all 4 extremities. EXTREMITIES: There is no peripheral edema. No clubbing, no cyanosis. Peripheral pulses are intact. - Labs CBC & Chem 7: 11/06/24 03:16 11/06/24 03:16 Labs: Abnormal Lab Results - Last 24 Hours (Table) 11/05/24 11/05/24 11/06/24 Range/Units 16:39 20:45 03:16 WBC 12.56 H (4.50-10.00) X 10*3/uL Neutrophils # 11.38 H (1.80-7.70) X 10*3/uL Lymphocytes # 0.40 L (0.90-5.00) X 10*3/uL Eosinophils # 0 L (0.04-0.35) X 10*3/uL Anion Gap (4.00-12.00) mmol/L BUN/Creatinine Ratio (12.00-20.00) Ratio Glucose (70-110) mg/dL POC Glucose (mg/dL) 134 H 150 H (70-110) mg/dL 11/06/24 11/06/24 Range/Units 03:16 10:20 WBC (4.50-10.00) X 10*3/uL Neutrophils # (1.80-7.70) X 10*3/uL Lymphocytes # (0.90-5.00) X 10*3/uL Eosinophils # (0.04-0.35) X 10*3/uL Anion Gap 12.70 H (4.00-12.00) mmol/L BUN/Creatinine Ratio 32.86 H (12.00-20.00) Ratio Glucose 141 H (70-110) mg/dL POC Glucose (mg/dL) 135 H (70-110) mg/dL Microbiology - Last 24 Hours (Table) 11/02/24 13:51 Blood Culture - Preliminary Blood Assessment and Plan Plan: Acute hypoxemic respiratory failure secondary to an acute exacerbation of moderate persistent chronic bronchial asthma complicated by influenza A, the patient remains on room air oxygen Acute influenza A infection, on Tamiflu Acute asthma exacerbation secondary to above, improving Febrile illness secondary to above, recovered Tachycardia secondary to above, recovered History of eosinophilic granulomatosis with polyangiitis (EGPA) asthma maintained on Fasenra, Trelegy, Singulair and albuterol in the outpatient setting Diabetes mellitus Former smoker Hyperlipidemia Plan: Obtain follow-up chest x-ray today shows no acute abnormalities Continue DuoNeb inhalations, Symbicort Continue Solu-Medrol for another 24 hours and start the patient on prednisone burst taper as of tomorrow Continue Tamiflu completed 5-day course Fasenra on outpatient basis Titrate the FiO2 as tolerated, currently on room air oxygen Will continue to follow
[2024-11-06 20:49] LABS: Glucose,Whole Blood 140 mg/dL (70-110)
[2024-11-07 06:00] LABS: Glucose,Whole Blood 139 mg/dL (70-110)
--- NOTE | 2024-11-07 06:16 | P.PN ---
Subjective Progress Note Date: 11/06/24 54-year-old male, history of severe bronchial asthma, hypertension, hyperlipidemia, diabetes, present to the emergency department with concerns with difficulty breathing. Onset of symptoms was yesterday. 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 Patient has had fever at home. No T ylenol or Motrin today. Patient does have some discomfort of his upper back and chest however states he does get this when he gets ill. Patient does have dry nonproductive cough. Patient feels short of breath and wheezy. Chest x-ray reveals no acute pulmonary process. EKG reveals sinus tachycardia with nonspecific ST and T wave changes Blood work completed in ED reveals White count 10.3. Hemoglobin 14.6. Platelets 153. Sodium 135. Potassium 3.9. Bicarb 26. BUN 24. Creatinine 0.71. Glucose 118. Viral screen positive for influenza A. 11/04/2024 Patient is seen and evaluated in follow-up on the regular medical floor. He is awake and alert in no acute distress. Feeling a bit better today compared to yesterday. Not quite back to his baseline. Resting in bed. -Vital signs are reviewed and stable; maintaining O2 saturations in the 90s on 2 L/min per nasal cannula. He has lactated Ringer's at [facility]. -- Blood culture revealing no growth to date. White count 15.6. Hemoglobin 14.6. Platelets 173. Sodium 140. Potassium 4.5. Bicarb 29. BUN 18. Creatinine 0.8. Glucose 139. He is continued on DuoNeb inhalations, Symbicort, Solu-Medrol, Singulair. Continued on Tamiflu. Continued on Levemir, NovoLog sliding scale. -- Patient continues to make progress; pulmonary service on board and recommending to continue with IV Solu-Medrol and Tamiflu -Possible discharge in next 24 hours if remains stable 11/05/2024 Patient is evaluated today in follow up on the medical floor. Patient is up ambulating around the room without difficulty. Not reporting significant shortness of breath. Patient remains on 2L of oxygen via nasal cannula. His oxyg en saturation 93% at rest and up to 85% while ambulating. He continues on IV solumedrol, oral tamiflu. Patient having trouble expectorating and will be started on mucinex. Continues on symbicort. Pulmonary following. Not quite ready for discharge. 11/06/2024 Patient is seen in follow-up today with pulmonary following continue to be short of breath with wheezing maintained on 2 to 4 L via nasal cannula. Patient reports he does not wear oxygen outpatient and recommend to wean FiO2 as tolerated. Encouraged increase activity as tolerated and will add incentive spirometer. Follow-up chest x-ray shows some improvement. Patient is afebrile denies chest pain or palpitations. Patient continues to have significant cough and being followed by pulmonary. Continue current steroid and DuoNeb treatments at this time. Patient will transition to prednisone taper starting tomorrow 11/07/2024. Review of Systems Constitutional: Denied any fatigue denied any fever. Cardio vascular: denied any chest pain, palpitations Gastrointestinal: denied any nausea, vomiting, diarrhea Pulmonary: Denied any shortness of breath reports nonproductive cough Neurologic denied any new focal deficits All inpatient medications were reviewed and appropriate changes in these medications as dictated in the interval history and assessment and plan. PHYSICAL EXAMINATION: GENERAL: The patient is alert and oriented x3, not in any acute distress. Well developed, well nourished. HEENT: Pupils are round and equally reacting to light. EOMI. No scleral icterus. No conjunctival pallor. Normocephalic, atraumatic. No pharyngeal erythema. No thyromegaly. CARDIOVASCULAR: S1 and S2 present. No murmurs, rubs, or gallops. PULMONARY: Coarse scattered ronchi. No significant wheezing noted. ABDOMEN: Soft, nontender, nondistended, normoactive bowel sounds. No palpable organomegaly. MUSCULOSKELETAL: No joint swelling or deformity. EXTREMITIES: No cyanosis, clubbing, or pedal edema. NEUROLOGICAL: Gross neurological examination did not reveal any focal deficits. SKIN: No rashes. Assessment and Plan 1. Acute hypoxic respiratory failure; likely related to acute exacerbation of asthma and influenza A infection -- Patient is currently saturating above 90% on 3 L O2 per nasal cannula -Plan to titrate or wean as able, incentive spirometer added -Did not pass home oxygen test today patient was down to 85% while on room air. 2. Acute exacerbation persistent chronic bronchial asthma -Patient takes Trelegy, Singulair, albuterol, and Fasenra at home -- Currently on IV Solu-Medrol 60 mg IV every 6 hours; Singulair 10 mg daily; patient has been placed on DuoNeb nebulizer treatments, Symbicort and Spiriva 3. Acute influenza A infection; received Tamiflu 75 mg p.o. twice daily in ED; we will continue to complete a 5-day course 4. Tachycardia -EKG completed in ED reveals sinus tachycardia with nonspecific ST and T wave changes; likely related to acute hypoxic respiratory failure -- Will monitor EKG and trend troponin 5. Hyperlipidemia; 10 mg p.o. nightly 6. Diabetes mellitus with long-term insulin use; patient uses Levemir 15 units SQ nightly; metformin 500 mg twice daily; we will continue with the home dose and monitor Accu-Cheks before every meal and at bedtime with insulin sliding scale DVT prophylaxis; SCDs/subcu heparin CODE STATUS; code Plan: Continue monitoring overnight and weaning FiO2 as tolerated. Patient currently on 2 L and does not wear oxygen outpatient. Will add incentive spirometer encouraged the patient to use at least 10 times every hour while awake. Patient reports he was able to take a shower today on room air but he was unsure of what his pulse ox numbers were. Will discuss with pulmonary regarding discharge planning. Patient will need a prednisone taper on discharge and will continue with breathing treatments Possible discharge planning in the next 24 to 48 hours The impression and plan of care has been dictated by Khloe Mccabe, Nurse Practitioner as directed. Dr. Lynn MD I have performed a history and physical examination and medical decision making of this patient, discussed the same with the dictator, and agree with the dictators assessment and plan as written, documented as a scribe. Based on total visit time, I have performed more than 50% of this visit. Objective - Vital Signs Vital signs: Vital Signs Temp 98.5 F 11/06/24 07:15 Pulse 82 11/06/24 08:47 Resp 18 11/06/24 08:47 BP 132/73 11/06/24 07:15 Pulse Ox 93 L 11/06/24 07:15 FiO2 Intake & Output 11/05/24 11/06/24 11/06/24 18:59 06:59 18:59 Other: Voiding Method Toilet Toilet # Voids 2 2 # Bowel Movements 0 - Labs CBC & Chem 7: 11/06/24 03:16 11/06/24 03:16 Labs: Abnormal Lab Results - Last 24 Hours (Table) 11/05/24 11/05/24 11/05/24 Range/Units 10:44 16:39 20:45 WBC (4.50-10.00) X 10*3/uL Neutrophils # (1.80-7.70) X 10*3/uL Lymphocytes # (0.90-5.00) X 10*3/uL Eosinophils # (0.04-0.35) X 10*3/uL Anion Gap (4.00-12.00) mmol/L BUN/Creatinine Ratio (12.00-20.00) Ratio Glucose (70-110) mg/dL POC Glucose (mg/dL) 145 H 134 H 150 H (70-110) mg/dL 11/06/24 11/06/24 Range/Units 03:16 03:16 WBC 12.56 H (4.50-10.00) X 10*3/uL Neutrophils # 11.38 H (1.80-7.70) X 10*3/uL Lymphocytes # 0.40 L (0.90-5.00) X 10*3/uL Eosinophils # 0 L (0.04-0.35) X 10*3/uL Anion Gap 12.70 H (4.00-12.00) mmol/L BUN/Creatinine Ratio 32.86 H (12.00-20.00) Ratio Glucose 141 H (70-110) mg/dL POC Glucose (mg/dL) (70-110) mg/dL Microbiology - Last 24 Hours (Table) 11/02/24 13:51 Blood Culture - Preliminary Blood
[2024-11-07 07:34] VITALS: BP 156/89; TEMP 97.5
[2024-11-07 08:17] VITALS: RESP 16
[2024-11-07 11:31] LABS: Glucose,Whole Blood 130 mg/dL (70-110)
[2024-11-07 15:39] VITALS: PULSE 88
--- NOTE | 2024-11-07 19:38 | P.PN ---
Subjective Progress Note Date: 11/07/24 This is a very pleasant 54-year-old male patient with a known history of hyperlipidemia, diabetes mellitus, former smoker. He also has eosinophilic asthma and follows with Dr. Garcia in our office for the same. He is on Fasenra, Trelegy, Singulair and albuterol. He came to the emergency room today after a rather sudden onset yesterday of shortness of breath, fever and cough. No exposures to sick people. Chest x-ray reveals no acute pulmonary process. White count 10.3. Hemoglobin 14.6. Platelets 153. Sodium 135. Potassium 3.9. Bicarb 26. BUN 24. Creatinine 0.71. Glucose 118. Viral screen positive for influenza A. He is seen today in consultation in the emergency department. He is currently sitting up on a stretcher. He is awake and alert. He is quite short of breath. He is hypoxemic requiring oxygen at 3 L/min per nasal cannula. He is tachycardic. Temperature 100.3. The patient is seen today November 03, 2024 in follow-up on the regular medical floor. He is currently sitting up in bed. Awake and alert in no acute distress. Feeling about the same today as compared to yesterday. He is maintaining O2 saturations in the 90s on 2 L/min per nasal cannula. He remains on lactated Ringer's at 130 mL/h. Continued on DuoNeb inhalations, Symbicort, Spiriva, Solu-Medrol. He remains on Tamiflu for influenza A infection. He is currently afebrile. Slightly tachycardic. Blood pressure stable. Glucose 152. The patient is seen today November 04, 2024 in follow-up on the regular medical floor. He is awake and alert in no acute distress. Feeling a bit better today compared to yesterday. Not quite back to his baseline. Resting in bed. Maintaining O2 saturations in the 90s on 2 L/min per nasal cannula. He has lactated Ringer's at [facility]. He is continued on DuoNeb inhalations, Symbicort, Solu-Medrol, Singulair. Continued on Tamiflu. Continued on Levemir, NovoLog sliding scale. Blood culture revealing no growth to date. White count 15.6. Hemoglobin 14.6. Platelets 173. Sodium 140. Potassium 4.5. Bicarb 29. BUN 18. Creatinine 0.8. Glucose 139. On 11/05/2024, the patient is being seen for a follow-up. The patient is doing better. Less short of breath compared to yesterday. Still oxygen dependent and he is currently on 2 L of oxygen by nasal cannula. Remains bronchospastic and wheezy. He is on Tamiflu. On IV Solu-Medrol. On DuoNeb nebulized treatments [id number] and Symbicort. Levemir insulin 15 units for blood sugar co ntrol and NovoLog/scale coverage. The patient remains on Glucophage. WBC count is at 15 with a hemoglobin 15 and a platelet count of 184. BUN is 22 with a creatinine 0.8 and a sodium levels at 141. No nausea. No vomiting. No diarrhea. No chest pain. Less tachycardic. On 11/06/2024, the patient is feeling better, less mucus passing and wheezy, oxygenation is improved and the patient is currently on room air oxygen with a pulse ox of 94%. Will continue same management. The patient remains on Tamiflu. Remains on Symbicort. Will continue IV Solu-Medrol for another 24 hours. Repeat chest x-ray from today shows no acute abnormalities. White cell count of 12.5 with a heme of 14.8 and a platelet count of 176. Electrolytes are all within normal limits. No new complaints. On today's evaluation of 11/07/2024, the patient is doing well and is on room air oxygen. No new complaints. Less bronchospastic and wheezy. Fever is subsided. No new labs are available from today. Denies having any other specific complaints. The plan is to discharge this patient home on a prednisone burst taper and will complete a 5-day course of Tamiflu. The patient will be discharged on a combination of Trelegy Ellipta, Singulair and albuterol updrafts and he will resume his Fasenra on outpatient basis. Sinus tachycardia is resolved. No new complaints. Objective - Vital Signs Vital signs: Vital Signs Temp 97.5 F L 11/07/24 07:33 Pulse 88 11/07/24 15:46 Resp 16 11/07/24 15:46 BP 156/89 11/07/24 07:33 Pulse Ox 90 L 11/07/24 07:33 FiO2 Intake & Output 11/07/24 11/07/24 11/08/24 06:59 18:59 06:59 Other: Voiding Method Toilet # Voids 2 - Exam GENERAL EXAM: Alert, 54-year-old male, on room air oxygen. HEAD: Normocephalic. EYES: Normal reaction of pupils, equal size. NOSE: Clear with pink turbinates. THROAT: No erythema or exudates. NECK: No masses, no JVD. CHEST: No chest wall deformity. LUNGS: Equal air entry with bilateral end expiratory wheeze. CVS: S1 and S2 normal with no audible murmur, regular rhythm. ABDOMEN: No hepatosplenomegaly, normal bowel sounds, no guarding or rigidity. SPINE: No scoliosis or deformity SKIN: No rashes CENTRAL NERVOUS SYSTEM: No focal deficits, tone is normal in all 4 extremities. EXTREMITIES: There is no peripheral edema. No clubbing, no cyanosis. Peripheral pulses are intact. - Labs CBC & Chem 7: 11/06/24 03:16 11/06/24 03:16 Labs: Abnormal Lab Results - Last 24 Hours (Table) 11/06/24 11/07/24 11/07/24 Range/Units 20:47 05:59 11:30 POC Glucose (mg/dL) 140 H 139 H 130 H (70-110) mg/dL Assessment and Plan Plan: Acute hypoxemic respiratory failure secondary to an acute exacerbation of moderate persistent chronic bronchial asthma complicated by influenza A, the patient remains on room air oxygen Acute influenza A infection, on Tamiflu Acute asthma exacerbation secondary to above, improving Febrile illness secondary to above, recovered Tachycardia secondary to above, recovered History of eosinophilic granulomatosis with polyangiitis (EGPA) asthma maintained on Fasenra, Trelegy, Singulair and albuterol in the outpatient setting Diabetes mellitus Former smoker Hyperlipidemia Plan: Patient is to be discharged home on a prednisone burst taper and resume his home medication including Trelegy Ellipta 1 puff a day, singular 10 mg p.o. daily, albuterol HFA and nebulizer with an as-needed basis and will continue the Fasenra. Completed a course of Tamiflu. The patient will see back in the office in few weeks time.
--- NOTE | 2024-11-09 15:28 | CDI ---
Documentation Clarification Form Date: 11/09/2024 03:10:14 PM From: Radha Nguyen RN, CCDS Email: [email or web address] Admit Date: 11/02/2024 03:27:00 PM Patient Name: Mariano Duvall Visit Number: [id number] Discharge Date: 11/07/2024 04:55:00 PM ATTENTION: The Clinical Documentation Specialists (CDI) and [facility] Coding Staff appreciate your assistance in clarifying documentation. Please respond to the clarification below the line at the bottom and electronically sign. The CDI & [facility] Coding staff will review the response and follow-up if needed. Please note: Queries are made part of the Legal Health Record. If you have any questions, please contact the author of this message via ITS. Doctor Sandrita Cali The patient had acute influenza A, tachycardia, fever and elevated white count. Based on this information and the findings below, is there an additional diagnosis that is clinically appropriate for this patient? History/Risk Factors: severe bronchial asthma, hypertension, hyperlipidemia, diabetes, present to the emergency department with concerns with difficulty breathing. Admitted with Influenza A and acute hypoxic respiratory failure. Clinical Indicators: 11/02 -11/06 WBC 10.3-15.68-12.56 11/02 Influenza A detected 11/02 Vital signs: Temp 102.5 HR 130 RR 28 BP 114/66 11/02 Pulmonary consult: "Acute hypoxemic respiratory failure secondary to an acute exacerbation of moderate persistent chronic bronchial asthma complicated by influenza A. Febrile illness secondary to above. Tachycardia secondary to above." Treatment: Acetaminophen 1000mg po x1 on 11/02; Ibuprofen 600mg po x1 on 11/02; IV Solumedrol 125mg x1 on 11/02; IV Solumedrol 60mg Q6H 11/02-11/07; Tamiflu 75mg po Q12H 11/02-11/06 Is there an additional diagnosis that is clinically appropriate for this patient? [ @@@ ] Viral Sepsis, present on admission [ ] No additional diagnosis/not clinically significant [ ] Other, please specify [ ] Unable to determine SIRS Criteria: 2 or more of the following may indicate SIRS Temperature < 96.8F (36C) or > 101.0F (38.3C) Heart Rate > 90 bpm Respiratory Rate > 20 breaths/min or PaCO2 < 32 mmHg White Blood Cell Count > 12,000 or < 4,000 cells/mm3 or > 10% bands MTDD
--- NOTE | 2024-11-10 21:39 | P.DS ---
Providers Date of admission: 11/02/24 15:27 Attending physician: Sandrita Cali MD Consults: 11/02/24 15:22 Consult Physician Routine Consulting Provider: Jani Chandra Consult Reason/Comments: influenza w hypoxia and eosinophilic asthma Do you want consulting provider notified?: Yes Primary care physician: Clary Vela Hospital Course: Final Diagnosis Acute hypoxic respiratory failure; likely related to acute exacerbation of asthma and influenza A infection Acute influenza A infection with sepsis, POA Acute exacerbation persistent chronic bronchial asthma Hyperlipidemia Diabetes mellitus with long-term insulin use Discharge Disposition Patient is stable for discharge home. Patient to continue all same home medications and inhalers. Continue oral prednisone taper. Continue mucinex. Has completed course of oral tamiflu. Follow up with PCP Dr Clary Vela has been scheduled for November 12. Patient to see pulmonolgy in the office on November 23. Repeat blood work 2 to 3 days. Hospital Course 54-year-old male, history of severe bronchial asthma, hypertension, hyperlipidemia, diabetes, present to the emergency department with concerns with difficulty breathing. Onset of symptoms was yesterday. 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 Patient has had fever at home. Patient does have some discomfort of his upper back and chest however states he does get this when he gets ill. Patient does have dry nonproductive cough. Patient feels short of breath and wheezy. Chest x-ray reveals no acute pulmonary process. EKG reveals sinus tachycardia with nonspecific ST and T wave changes. Blood work completed in ED reveals White count 10.3. Hemoglobin 14.6. Platelets 153. Sodium 135. Potassium 3.9. Bicarb 26. BUN 24. Creatinine 0.71. Glucose 118. Viral screen positive for influenza A. Patient has been started on Iv solumedrol and tamiflu. He has been admitted to the hospital with consult placed to pulmonology. He has require oxygen via nasal cannula at 2L. Patient having trouble expectorating and was started on mucinex. Continues on symbicort. He did fail his home oxygen test with oxygen saturations down to mid 80s for this reason he was monitored an additional day in the hospital. He has been ambulating and feels less short of breath. He was able to be weaned off oxygen and will not require any oxygen on discharge with saturations now in the 90s while ambulating. He has been cleared by pulmonology. Please see medication reconciliation for a list of current medications. Thank you for allowing us to participate in the care of this patient. The impression and plan of care has been dictated by Brook Stack, Nurse Practitioner as directed. Dr. Lynn MD I have performed a history and physical examination and medical decision making of this patient, discussed the same with the dictator, and agree with the dictators assessment and plan as written, documented as a scribe. Based on total visit time, I have performed more than 50% of this visit. Patient Condition at Discharge: Fair Plan - Discharge Summary Discharge Rx Participant: Yes New Discharge Prescriptions: New guaiFENesin [Mucinex] 600 mg PO Q12HR 10 Days #20 tab predniSONE 0 mg PO DIRECTED 16 Days #38 tab Continue Montelukast [Singulair] 10 mg PO HS Albuterol Nebulized [Ventolin Nebulized] 2.5 mg INHALATION RT-DAILY metFORMIN HCL [Glucophage] 500 mg PO BID Albuterol Nebulized [Ventolin Nebulized] 2.5 mg INHALATION RT-BID PRN PRN Reason: Shortness Of Breath Rosuvastatin Calcium [Crestor] 5 mg PO DAILY Fluticasone/Umeclidin/Vilanter [Trelegy Ellipta 200-62.5-25] 1 puff INHALATION RT-DAILY Albuterol Inhaler [Ventolin Hfa Inhaler] 2 puff INHALATION RT-Q4H PRN PRN Reason: Shortness Of Breath Benralizumab [Fasenra Pen] 30 mg SQ Q56D predniSONE [Deltasone] 20 mg PO DAILY Discharge Medication List Montelukast [Singulair] 10 mg PO HS 07/25/23 [History] Albuterol Inhaler [Ventolin Hfa Inhaler] 2 puff INHALATION RT-Q4H PRN 03/21/24 [History] Albuterol Nebulized [Ventolin Nebulized] 2.5 mg INHALATION RT-DAILY 03/21/24 [History] Fluticasone/Umeclidin/Vilanter [Trelegy Ellipta 200-62.5-25] 1 puff INHALATION RT-DAILY 03/21/24 [History] Rosuvastatin Calcium [Crestor] 5 mg PO DAILY 03/21/24 [History] Albuterol Nebulized [Ventolin Nebulized] 2.5 mg INHALATION RT-BID PRN 11/02/24 [History] Benralizumab [Fasenra Pen] 30 mg SQ Q56D 11/02/24 [History] metFORMIN HCL [Glucophage] 500 mg PO BID 11/02/24 [History] predniSONE [Deltasone] 20 mg PO DAILY 11/02/24 [History] guaiFENesin [Mucinex] 600 mg PO Q12HR 10 Days #20 tab 11/07/24 [Rx] predniSONE 0 mg PO DIRECTED 16 Days #38 tab 11/07/24 [Rx] Follow up Appointment(s)/Referral(s): Clary Vela MD [Primary Care Provider] - 11/12/24 8:45 am Juan Manuel Amador MD [STAFF PHYSICIAN] - 11/23/24 9:45 am () Ambulatory/Diagnostic Orders: Basic Metabolic Panel [LAB.AMB] Location: None Selected Complete Blood Count w/diff [LAB.AMB] Time Frame: 3 Days, Location: None Select ed Patient Instructions/Handouts: Influenza (DC) Discharge Disposition: HOME SELF-CARE
== END 2024-11-07 16:55 | disposition home or self-care (01) | DRG 871 ==
LOC: EC 13:08 → 4SSUR 15:27
PROVIDERS: ADMIT Internal Medicine; ATTEND Internal Medicine
DX: A41.89 Other specified sepsis (principal); J96.01 Acute respiratory failure with hypoxia; J82.83 Eosinophilic asthma; Z99.81 Dependence on supplemental oxygen; J45.41 Moderate persistent asthma with (acute) exacerbation; E11.9 Type 2 diabetes mellitus without complications; I10 Essential (primary) hypertension; Z79.4 Long term (current) use of insulin; J10.1 Influenza due to other identified influenza virus with other respiratory manifestations; E78.5 Hyperlipidemia, unspecified; Z87.891 Personal history of nicotine dependence; Z88.0 Allergy status to penicillin; Z79.84 Long term (current) use of oral hypoglycemic drugs; Z79.899 Other long term (current) drug therapy; Z79.51 Long term (current) use of inhaled steroids
CPT/HCPCS: 36415; 71045; 71046; 80048; 80053; 83605; 85025; 85610; 85730; 87040; 87636; 93005; 94640; 94760; 96361; 96374; 96376; 99291

== ENCOUNTER → 2024-11-09 | Outpatient (CLI) | payer BC ==
[2024-11-09 15:10] LABS: HCT 48.2 % (39.6-50.0); HGB 16.3 g/dL (13.0-17.0); MCH 31.2 pg (27.0-32.0); MCHC 33.8 g/dL (32.0-37.0); MCV 92.3 FL (80.0-97.0); RBC 5.22 X 10*6/uL (4.40-5.60); WBC 14.96 X 10*3/uL (4.50-10.00)
[2024-11-09 15:11] LABS: Basophils # (A) 0.06 X 10*3/uL (0.00-0.10); Basophils % (A) 0.4 %; Eosinophils # (A) 0.05 X 10*3/uL (0.04-0.35); Eosinophils % (A) 0.3 %; Lymphocytes # (A) 1.34 X 10*3/uL (0.90-5.00); Mean Platelet Volume 10.7 FL (9.5-12.2); Monocytes # (A) 1.49 X 10*3/uL (0.20-1.00); NRBC Per 100 WBC 0 X 10*3/uL (0.00-0.01); Neutrophils # (A) 11.76 X 10*3/uL (1.80-7.70); Neutrophils % (A) 78.6 %; Platelet Count 217 X 10*3/uL (140-440)
[2024-11-09 15:23] LABS: Blood Urea Nitrogen 20.7 mg/dL (9.0-27.0); Calcium 8.7 mg/dL (8.7-10.3); Carbon Dioxide 26.5 mmol/L (21.6-31.8); Chloride 100 mmol/L (96-109); Glucose 108 mg/dL (70-110); Potassium 4.3 mmol/L (3.5-5.5); Sodium 138 mmol/L (135-145)
== END | disposition home or self-care (01) ==
LOC: LABWHC1 10:11
PROVIDERS: ATTEND Nurse Practitioner Family
DX: J44.9 Chronic obstructive pulmonary disease, unspecified (principal); J11.82 Influenza due to unidentified influenza virus with myocarditis
CPT/HCPCS: 36415; 80048; 85025

== ENCOUNTER → 2024-12-20 | Outpatient (CLI) | payer BC ==
[2024-12-20 10:32] LABS: African American GFR (CKD) >90 (>60 ml/min/1.73 sqM); Blood Urea Nitrogen 19 mg/dL (9-20); Non-African American GFR(CKD) >90 (>60 ml/min/1.73 sqM)
--- NOTE | 2024-12-20 11:35 | CT ---
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 Sagittal and coronal reformats were created for review. MIP was performed on a separate workstation. Contrast used:100 ml mL of Isovue 300 with IV Contrast (None if empty) Oral contrast used: (None if empty) CT DLP: 625 mGycm, Automated exposure control for dose reduction was used. FINDINGS: LUNGS/ PLEURA: No focal consolidation, pneumothorax or pleural effusion. AIRWAY: Patent and unremarkable. HEART: Size within normal limits. No significant coronary artery calcifications. MEDIASTINUM: No gross evidence of adenopathy. VASCULATURE: No aortic aneurysm. No evidence for vascular wall thickening. No evidence for dissectio n or occlusion. The ureters ultimately unremarkable. 4 vessel aortic arch. No evidence for filling de fect within central pulmonary arterial vasculature. MUSCULOSKELETAL: Mild disc degeneration changes are present throughout the thoracolumbar spine second yannick to osteophyte formation and facet joint arthropathy. SOFT TISSUES/LYMPH NODES: Unremarkable. LOWER NECK: No significant findings. UPPER ABDOMEN: Diffuse low-attenuation to the liver. IMPRESSION: 1. No evidence for acute abdominal process. 2. No evidence for dissection occlusion, central pulmonary embolus or aneurysm. 3. Hepatic steatosis. [facility], , 12/20/2024 11:33 AM
== END | disposition home or self-care (01) ==
LOC: RADCTMAIN 09:39
PROVIDERS: ATTEND Internal Medicine Critical Care Medicine
DX: M30.1 Polyarteritis with lung involvement [Churg-Strauss] (principal); K76.0 Fatty (change of) liver, not elsewhere classified
CPT/HCPCS: 82565; 84520; 71260; 36415; Q9967